=== PATIENT | male | born 1945 | race Caucasian/White ===

== ENCOUNTER 2021-08-15 21:45 | Inpatient (IN) ==
[2021-08-15] MEDS ORDERED: SODIUM CHLORIDE 0.9% 500 ML IV STA (21:55)
[2021-08-15 22:07] LABS: Basophils # (auto) 0.09 K/uL (0-0.2); Basophils % (auto) 0.8 %; Eosinophils # (auto) 0.53 K/uL (0-0.5); Eosinophils % (auto) 4.8 %; Hematocrit (blood only) 43.2 % (42-52); Hemoglobin 14.9 g/dL (14.0-18.0); Immature Granulocytes # (auto) 0.04 K/uL (0.00-0.02); Immature Granulocytes % (auto) 0.4 %; Lymphocytes # (auto) 4.49 K/uL (1.2-3.4); Lymphocytes % (auto) 40.4 %; Mean Corpuscular Hemoglobin 34.1 pg (25-34); Mean Corpuscular Hgb Conc 34.5 g/dL (32-36); Mean Corpuscular Volume 98.9 fL (80-100); Mean Platelet Volume 9.8 fL (7.4-10.4); Monocytes # (auto) 1.49 K/uL (0.11-0.59); Monocytes % (auto) 13.4 %; Neutrophils # (auto) 4.47 K/uL (1.4-6.5); Neutrophils % (auto) 40.2 %; Platelet Count 339 K/uL (130-400); RDW Coefficient of Variation 13.8 % (11.5-14.5); RDW Standard Deviation 49.8 fL (36.4-46.3); Red Blood Count 4.37 M/uL (4.7-6.1); White Blood Count 11.11 K/uL (4.8-10.8)
[2021-08-15 22:20] LABS: Partial Thromboplastin Time 25.8 Seconds (21.0-31.0); Prothrombin Time 10.5 Seconds (9.0-12.0)
[2021-08-15 22:23] LABS: Alanine Aminotransferase 25 (12-78); Albumin Level 3.3 gm/dl (3.4-5.0); Aspartate Aminotransferase 19 U/L (15-37); BUN Creatinine Ratio 18.5 (10-20); Blood Urea Nitrogen 17 mg/dl (7-18); Calcium 8.2 mg/dl (8.5-10.1); Carbon Dioxide 23 mmol/L (21-32); Chloride 107 mmol/L (98-107); Creatinine Clr Calc Pharmacy 75.3 ml/min; Est GFR (African American) 92.7 ml/min; Glucose 104 mg/dl (70-99); Lipase 196 U/L (73-393); Potassium 3.9 mmol/L (3.5-5.1); Sodium 138 mmol/L (136-145)
--- NOTE | 2021-08-15 22:25 | Emergency Department Note ---
History of Present Illness General Chief complaint: Arrhythmia/Palpitations Stated complaint: Cardiac Assessment AMS Time Seen by Provider: 08/15/21 21:55 Source: patient and EMS Mode of arrival: EMS Limitations: no limitations History of Present Illness This patient is brought in by EMS after he had episode of dizziness. They called me as they were worried about heart block. On the monitor it looks to be a second, likely third-degree heart block from what they sent me although a rhythm strip was not there. He has had normal blood pressure on route. His speech was a little labored but not slurred. He did drink 1 beer tonight. He denies chest pain or shortness of breath apparently he was dizzy earlier but feels pretty good now. No abdominal pain no focal numbness or weakness no headache neck pain or stiffness. He denies any history of cardiac disease or renal disease. Family arrived and told me that they drove from [place] and were in the hotel room and the patient started feeling like his ears were ringing and then he felt dizzy like the room was spinning. They felt his speech was off as well. The patient feels much better now and has no dizziness or ear ringing but his speech still seems labored to them. He has had no trauma. He had a recent work-up with an MRI within the last 6 months or so for memory issues for dementia. He did have a stroke work-up done several years ago and his that it was unremarkable he apparently had a TIA. Home Medications Medication Instructions Recorded Confirmed Type acetaminophen 650 mg 650 mg PO Q12H 08/15/21 08/15/21 History tablet,extended release losartan 100 mg tablet 100 mg PO DAILY 08/15/21 08/15/21 History omeprazole 20 mg capsule,delayed 20 mg PO DAILY 08/15/21 08/15/21 History release omeprazole 20 mg capsule,delayed 20 mg PO QPM PRN 08/15/21 08/15/21 History release Allergies Allergy/AdvReac Type Severity Reaction Status Date / Time No Known Allergies Allergy Unverified 08/15/21 22:10 Past Med/Surg History Social History Smoking Status: Former smoker Preferred Language: [place] Feels Safe at Home: Yes Immunizations: Past medical historymild dementia, hypertension. No history of diabetes, cardiac disease. No blood thinners. No aortic pathology Social [place]ives in [place] with his family he did drink 2 beers this evening Review of Systems A total of 10 systems reviewed and were otherwise negative Physical Exam Vital Signs Vital Signs - 24 hr 08/15/21 21:57 08/15/21 22:08 08/15/21 22:15 Temperature 36.8 C Temperature Source Oral Pulse Rate 48 L 41 L 47 L Pulse Rate [Apical] Pulse Rhythm Irregular Pulse Rhythm [Apical] Pulse Strength Normal Pulse Strength [Apical] Respiratory Rate 18 16 17 Respiratory Effort / Characteristics Non-Labored Spontaneous Respiratory Depth Normal Respiratory Pattern Regular Blood Pressure 133/98 128/74 143/88 H Blood Pressure [Right Arm] Blood Pressure Mean 109 92 106 Blood Pressure Mean [Right Arm] Blood Pressure Position Lying Blood Pressure Position [Right Arm] Pulse Oximetry 96 95 95 Oxygen Delivery Method Room Air Sepsis Recent Fever Within 48 Hours No Sepsis New/Unexplained Change in Mental Status No Sepsis Action Taken by Nursing No Action Required 08/15/21 22:31 08/15/21 22:38 08/15/21 23:13 Temperature Temperature Source Pulse Rate 50 L 38 L Pulse Rate [Apical] 55 L Pulse Rhythm Pulse Rhythm [Apical] Regular Pulse Strength Pulse Strength [Apical] Normal Respiratory Rate 17 15 16 Respiratory Effort / Characteristics Non-Labored Spontaneous Respiratory Depth Normal Respiratory Pattern Regular Blood Pressure 141/105 H 152/97 H Blood Pressure [Right Arm] 157/88 H Blood Pressure Mean 117 115 Blood Pressure Mean [Right Arm] 111 Blood Pressure Position Blood Pressure Position [Right Arm] Semi-fowlers Pulse Oximetry 94 95 95 Oxygen Delivery Method Room Air Sepsis Recent Fever Within 48 Hours Sepsis New/Unexplained Change in Mental Status Sepsis Action Taken by Nursing General: Well developed well nourished older male who appears in no acute distress, breathing comfortably on room air. Normal speech which is slightly thick but he answers questions appropriately and names objects appropriately HEENT: Normal cephalic atraumatic. Pupils are equal round and reactive to light. No nystagmus extraocular movements are intact. Oropharynx is pink with moist mucous membranes. No swelling of the mouth lips or tongue. Neck: Supple with a midline trachea. No meningeal signs or stiffness, no JVD or bruits. No Stridor. Chest: Clear to auscultation bilaterally. No wheezes or rhonchi. No increased work of breathing. Heart: Regular rate and rhythm without murmurs or gallops. Abdomen: Soft nontender, nondistended without rebound guarding or rigidity. Extremities: No cyanosis clubbing or edema. No calf tenderness or assymetry Spine/Back. Non tender to palpation. No CVA tenderness Skin: Good turgor without rashes. Neurologic exam: Cranial nerves two through 12 are intact. Motor and sensation are intact and symmetrical throughout. No tremor. Finger-nose intact. Course Administered Medications Discontinued Medications Aspirin (Aspirin 81 Mg Chew) 324 mg PO NOW STA Stop: 08/16/21 00:01 Last Admin: 08/16/21 00:20 Dose: 324 mg Documented by: [id number] Sodium Chloride (Nss) 500 mls @ 999 mls/hr IV .Q31M STA Stop: 08/15/21 22:25 Last Infusion: 08/15/21 22:40 Dose: 0 mls/hr Documented by: [id number] Admin: 08/15/21 22:12 Dose: 999 mls/hr Documented by: [id number] Ioversol (Optiray 320 125ml) 120 ml IV ONCE ONE Stop: 08/15/21 22:54 Last Admin: 08/15/21 23:01 Dose: 120 ml Documented by: [id number] Critical Care Time Critical Care Time: Yes Total Critical Care Time: 90 Due to the patient's cardiac arrhythmia, potential neurologic symptoms, need for frequent reassessment, consultation/discussion with neurology, internal medicine, cardiology, family members extensive work-up and frequent reevaluation, I have personally spent greater than 90 minutes of critical care time in the direct management of this patient. This includes bedside care, interpretation of diagnostic studies, and testing, discussion with consultants, patient, and family members, and other required patient management activities. This 90 minutes is in excess of all separately billable procedures. Medical Decision Making Differential Diagnosis Heart block, arrhythmia, acute coronary syndrome, electrolyte or metabolic abnormality, Lyme disease, stroke, intracranial process, vascular pathology, dissection Medical Records Attestation: I reviewed the patient's medical records. Home Medications Current Medication List: was personally reviewed by me Laboratory Data Attestation: I reviewed the patient's lab results. Result diagrams: 08/15/21 21:58 08/15/21 21:58 Lab Results 01/01/22 01/01/22 01/01/22 Range/Units 21:58 21:58 21:58 WBC 11.11 H (4.8-10.8) K/uL RBC 4.37 L (4.7-6.1) M/uL Hgb 14.9 (14.0-18.0) g/dL Hct 43.2 (42-52) % MCV 98.9 (80-100) fL MCH 34.1 H (25-34) pg MCHC 34.5 (32-36) g/dL RDW Std Deviation 49.8 H (36.4-46.3) fL RDW Coeff of Alec 13.8 (11.5-14.5) % Plt Count 339 (130-400) K/uL MPV 9.8 (7.4-10.4) fL Immature Gran % (Auto) 0.4 % Neut % (Auto) 40.2 % Lymph % (Auto) 40.4 % [place] % (Auto) 13.4 % Eos % (Auto) 4.8 % Baso % (Auto) 0.8 % Neut # (Auto) 4.47 (1.4-6.5) K/uL Lymph # (Auto) 4.49 H (1.2-3.4) K/uL [place] # (Auto) 1.49 H (0.11-0.59) K/uL Eos # (Auto) 0.53 H (0-0.5) K/uL Baso # (Auto) 0.09 (0-0.2) K/uL Immature Gran # (Auto) 0.04 H (0.00-0.02) K/uL PT 10.5 (9.0-12.0) Seconds INR 1.0 (0.9-1.1) APTT 25.8 (21.0-31.0) Seconds PTT Ratio 1.0 Sodium 138 (136-145) mmol/L Potassium 3.9 (3.5-5.1) mmol/L Chloride 107 (98-107) mmol/L Carbon Dioxide 23 (21-32) mmol/L Anion Gap 7.0 (3-11) BUN 17 (7-18) mg/dl Creatinine 0.93 (0.6-1.4) mg/dl Est Cr Clr Drug Dosing 75.3 ml/min Est GFR ( Amer) 92.7 ml/min Est GFR (Non-Af Amer) 80.0 ml/min BUN/Creatinine Ratio 18.5 (10-20) Glucose 104 H (70-99) mg/dl Calcium 8.2 L (8.5-10.1) mg/dl Magnesium 2.1 (1.8-2.4) mg/dl Total Bilirubin 0.3 (0.2-1) mg/dl AST 19 (15-37) U/L ALT 25 (12-78) Alkaline Phosphatase 67 (45-117) U/L Troponin I < 0.015 (0-0.045) ng/ml NT-Pro-B Natriuret Pep 124 (0-900) pg/ml Total Protein 6.7 (6.4-8.2) gm/dl Albumin 3.3 L (3.4-5.0) gm/dl Globulin 3.4 (2.5-4.0) gm/dl Albumin/Globulin Ratio 1.0 (0.9-2) Lipase 196 (73-393) U/L TSH 1.610 (0.300-4.500) uIu/ml Ethyl Alcohol mg/dL (0-3) mg/dl Lyme Disease IgG Ab (Negative) Lyme Disease IgM Ab (Negative) SARS-CoV-2, RNA, NAAT (NEGATIVE) 08/15/21 08/15/21 08/15/21 Range/Units 21:58 22:15 22:34 WBC (4.8-10.8) K/uL RBC (4.7-6.1) M/uL Hgb (14.0-18.0) g/dL Hct (42-52) % MCV (80-100) fL MCH (25-34) pg MCHC (32-36) g/dL RDW Std Deviation (36.4-46.3) fL RDW Coeff of Alec (11.5-14.5) % Plt Count (130-400) K/uL MPV (7.4-10.4) fL Immature Gran % (Auto) % Neut % (Auto) % Lymph % (Auto) % [place] % (Auto) % Eos % (Auto) % Baso % (Auto) % Neut # (Auto) (1.4-6.5) K/uL Lymph # (Auto) (1.2-3.4) K/uL [place] # (Auto) (0.11-0.59) K/uL Eos # (Auto) (0-0.5) K/uL Baso # (Auto) (0-0.2) K/uL Immature Gran # (Auto) (0.00-0.02) K/uL PT (9.0-12.0) Seconds INR (0.9-1.1) APTT (21.0-31.0) Seconds PTT Ratio Sodium (136-145) mmol/L Potassium (3.5-5.1) mmol/L Chloride (98-107) mmol/L Carbon Dioxide (21-32) mmol/L Anion Gap (3-11) BUN (7-18) mg/dl Creatinine (0.6-1.4) mg/dl Est Cr Clr Drug Dosing ml/min Est GFR ( Amer) ml/min Est GFR (Non-Af Amer) ml/min BUN/Creatinine Ratio (10-20) Glucose (70-99) mg/dl Calcium (8.5-10.1) mg/dl Magnesium (1.8-2.4) mg/dl Total Bilirubin (0.2-1) mg/dl AST (15-37) U/L ALT (12-78) Alkaline Phosphatase (45-117) U/L Troponin I (0-0.045) ng/ml NT-Pro-B Natriuret Pep (0-900) pg/ml Total Protein (6.4-8.2) gm/dl Albumin (3.4-5.0) gm/dl Globulin (2.5-4.0) gm/dl Albumin/Globulin Ratio (0.9-2) Lipase (73-393) U/L TSH (0.300-4.500) uIu/ml Ethyl Alcohol mg/dL 5.7 H (0-3) mg/dl Lyme Disease IgG Ab Negative (Negative) Lyme Disease IgM Ab Negative (Negative) SARS-CoV-2, RNA, NAAT NEGATIVE (NEGATIVE) Imaging Data Attestation: I personally reviewed and interpreted this imaging study as follows: My Impression: Chest x-rayno acute infiltrate, failure, pneumothorax. CAT scan of the headno hemorrhage or mass-effect seen Radiologist's Impression: Chest X-Ray 08/15/21 21:55 XR chest 1V portable HISTORY: 75 years-old Male Chest Pain acute atypical chest pain with dizziness COMPARISON: None TECHNIQUE: Portable AP view of the chest FINDINGS: The cardiac silhouette is upper limits of normal in size. No pneumothorax, large pleural effusion or overt pulmonary edema. Minimal bibasilar densities suggest atelectasis. Degenerative changes of the shoulders and spine. IMPRESSION: No acute process. ACT 112: Negative or not required by law. The above report was generated using voice recognition software. It may contain grammatical, syntax or spelling errors. Electronically signed by: Iván Tapia M.D. 08/15/2021 10:[address] 08/15/21 22:03 CT head/brain wo con CLINICAL HISTORY: 75 years-old Male with dizziness. Acute dizziness TECHNIQUE: Multiple axial CT images of the head were obtained without contrast. A dose lowering technique was utilized adhering to the principles of ALARA. COMPARISON: None FINDINGS: Age-related involutional changes. White matter hypodensities suggestive of chronic microvascular ischemic disease. Cerebral vascular calcifications. No acute intracranial hemorrhage, midline shift, intracranial mass, hydrocephalus, territorial ischemia or abnormal extra-axial collection. The calvarium is intact. Mastoid air cells are clear. Mild to moderate mucosal thickening of the paranasal sinuses, most pronounced within the ethmoid air cells. Unremarkable soft tissues. Prior bilateral lens repair. IMPRESSION: No acute intracranial abnormality. ACT 112: Negative or not required by law. The above report was generated using voice recognition software. It may contain grammatical, syntax or spelling errors. Electronically signed by: Iván Tapia M.D. 08/15/2021 11:09 PM Head CTA 08/15/21 22:03 CT angio head w con, CT angio neck with con CLINICAL HISTORY: 75 years-old Male with dizziness. Acute dizziness with strokelike symptoms COMPARISON STUDY: CTA chest and PET/CT studies of same day TECHNIQUE: Following the IV administration of 120 cc of Optiray, CT angiogram of the head and neck was performed from the aortic arch to the skull apex. Images are reviewed in the axial, sagittal, and coronal planes. 3-D MIPS images are created and assessed. IV contrast was administered without complication. All measurements were obtained according to NASCET criteria. A dose lowering t echnique was utilized adhering to the principles of ALARA. FINDINGS: Three-vessel morphology of the thoracic aortic arch. Patency of the innominate and imaged subclavian arteries. The common and internal carotid arteries are patent. There is mild atherosclerotic plaque of the right. Left carotid bulbs. The middle and anterior cerebral arteries appear to be patent. There is mild multifocal luminal narrowing of the vertebral artery secondary to spondylitic spurring and facet arthrosis of the cervical spine which measures up to 50% bilaterally. There is smooth moderate luminal narrowing of the distal V4 segment right vertebral artery. There is approximately 30% stenosis of the distal basilar artery and proximal P1 segment of the right posterior cerebral artery as seen on images 125-131 of series 8. There is a questioned eccentric small thrombus within this distribution. origin of the left posterior cerebral artery. The cerebral venous sinuses are patent. No abnormal intracranial enhancement. Mild to moderate mucosal thickening of the paranasal sinuses. No pneumothorax. Unremarkable soft tissues. Degenerative changes of the cervical spine. IMPRESSION: 1. 30% luminal narrowing of the distal basilar artery and proximal P1 segment of the right posterior cerebral artery secondary to a questioned eccentric thrombus. No high-grade stenosis or arterial occlusion. 2. Otherwise unremarkable CTA of the head and neck. ACT 112: Negative or not required by law. The above report was generated using voice recognition software. It may contain grammatical, syntax or spelling errors. Electronically signed by: Iván Tapia M.D. 08/15/2021 11:38 PM Neck CTA 08/15/21 22:03 CT angio head w con, CT angio neck with con CLINICAL HISTORY: 75 years-old Male with dizziness. Acute dizziness with strokelike symptoms COMPARISON STUDY: CTA chest and PET/CT studies of same day TECHNIQUE: Following the IV administration of 120 cc of Optiray, CT angiogram of the head and neck was performed from the aortic arch to the skull apex. Images are reviewed in the axial, sagittal, and coronal planes. 3-D MIPS images are created and assessed. IV contrast was administered without complication. All measurements were obtained according to NASCET criteria. A dose lowering technique was utilized adhering to the principles of ALARA. FINDINGS: Three-vessel morphology of the thoracic aortic arch. Patency of the innominate and imaged subclavian arteries. The common and internal carotid arteries are patent. There is mild atherosclerotic plaque of the right. Left carotid bulbs. The middle and anterior cerebral arteries appear to be patent. There is mild multifocal luminal narrowing of the vertebral artery secondary to spondylitic spurring and facet arthrosis of the cervical spine which measures up to 50% bilaterally. There is smooth moderate luminal narrowing of the distal V4 segment right vertebral artery. There is approximately 30% stenosis of the distal basilar artery and proximal P1 segment of the right posterior cerebral artery as seen on images 125-131 of series 8. There is a questioned eccentric small thrombus within this distribution. origin of the left posterior cer ebral artery. The cerebral venous sinuses are patent. No abnormal intracranial enhancement. Mild to moderate mucosal thickening of the paranasal sinuses. No pneumothorax. Unremarkable soft tissues. Degenerative changes of the cervical spine. IMPRESSION: 1. 30% luminal narrowing of the distal basilar artery and proximal P1 segment of the right posterior cerebral artery secondary to a questioned eccentric thrombus. No high-grade stenosis or arterial occlusion. 2. Otherwise unremarkable CTA of the head and neck. ACT 112: Negative or not required by law. The above report was generated using voice recognition software. It may contain grammatical, syntax or spelling errors. Electronically signed by: Iván Tapia M.D. 08/15/2021 11:38 PM Chest CTA 08/15/21 22:37 CT angio chest dissec wo/w con HISTORY: 75 years-old Male eval for dissect acute chest pain with cardiac arrhythmia COMPARISON: Chest radiograph of same day TECHNIQUE: CTA of the chest was obtained both with and without the use of 120 mL Optiray 320. 3-D coronal and sagittal MIPS were obtained from the axial data set and were submitted for review. All measurements were obtained according to NASCET criteria. A dose lowering technique was used consistent with the principa ls of FORTUNATO. FINDINGS: CTA: There is mild to moderate cardiomegaly with moderate coronary artery calcifications. There is mild atherosclerotic plaque of the thoracic aorta. No intracranial hematoma, dissection or aneurysm. The imaged great vessels appear patent. The imaged pulmonary artery is unremarkable. No evidence of pulmonary emboli. No mediastinal hematoma. CT CHEST: Unremarkable thyroid. There are a few prominent and slightly enlarged mediastinal and hilar lymph nodes measuring up to 10 mm which are likely reactive. Mild dependent subsegmental bibasilar atelectasis. Mild intralobular septal thickening. No pneumothorax, pleural effusion or airspace consolidation typical for pneumonia. There are no suspicious pulmonary nodules or masses identified. The central airways appear patent. Mild nonspecific distal esophageal wall thickening. Mild atrophic pancreas. 1.4 cm cystic structure of the pancreatic head, possibly sidebranch IPMN. Moderately distended stomach is suggestive of recent meal. 2.1 cm right hepatic lobe cyst. No acute fracture identified. Degenerative changes of the spine and shoulders. IMPRESSION: 1. Cardiomegaly with unremarkable appearance of the thoracic aorta. No aneurysm or dissection. 2. Mild intralobular septal thickening may represent mild pulmonary edema. 3. No pleural effusion or airspace consolidation typical for pneumonia. 4. Mild mediastinal and hilar adenopathy, likely reactive. ACT 112: Negative or not required by law. The above report was generated using voice recognition software. It may contain grammatical, syntax or spelling errors. Electronically signed by: Iván Tapia M.D. 08/15/2021 11:38 PM ECG Data Attestation: I personally reviewed and interpreted this ECG as follows: Indication: + other (Dizziness) Rate (beats per minute): 45 Rhythm: + sinus rhythm ECG Intervals/blocks: + Complete heart block ECG [place]: + Normal ECG Findings: no PACs or no PVCs Comparison ECG Date: no prior available Additional Comments: EKG #2third-degree heart block with a ventricular rate of 72. No ischemic changes. MDM Narrative This patient comes in as described above. I did talk to the mass communications instructor prior to arrival give medical command the patient has remained hemodynamically stable we did place the patient in room A1 I saw the patient immediately upon arrival. Blood sugar was within normal limits. The patient was mentating normally and has a blood pressure in the 140s despite having heart rate in the 40s that goes up to 60s. When I run the rhythm strip it does look like it is a third-degree heart block although it may be a complex second-degree. He seems to be p erfusing with this he has no chest pain or shortness of breath this all started with dizziness and his speech is a little thick at present but he is answering questions appropriately he is just seems to be talking quietly at times he has no other complaints his neurologic exam is otherwise normal he has normal finger-nose and there is no tremor. I did add a Lyme titer and alcohol as well to the normal testing. Chest x-ray does not show congestive heart failure pneumonia or pneumothorax. I did discuss case with Dr. Taylor immediately after I saw him he feels that given his blood pressure being normal/elevated that we should work him up first and he does not need immediate pacemaker I agree with this. He was not found to have any electrolyte or metabolic abnormalities. He is not severely anemic. I did order a CT of the head as well as CT angio of the head, neck, and chest. He was reassessed frequently. Stroke would still be in the differential however his symptoms are getting better and he only has labored's beach at this point. It is unclear whether this is actually a stroke he also has a heart block. I talked to his family and they agree I do not think he needs thrombolytics at this point I think the risk would outweigh the benefit. His Covid test was negative. Head CT does not show any hemorrhage or mass-effect. His alcohol was not significantly elevated. CT angio of the head neck and chest were unremarkable with exception of a 30% blockage or possible thrombus that is nonocclusive on the right basilar area. I talked to the patient's son who is respiratory therapist on the phone he agrees with the care. I also did talk to Dr. Luna, who is the [place] stroke neurologist. He agrees that thrombolytics are not indicated. It is not clear whether this p atient had a stroke but certainly does have a cardiac electrical issue going on. The patient seems fine at rest and his speech is still thick but improved significantly according to family we did try to ambulate him he got dizzy again and his speech got worse but he got better when he sat down. He was given aspirin. Dr. Luna also said that if his symptoms get worse we could consider heparinizing him. He also said we could put him on a statin as well and I relayed these recommendations to Dr. Quinn who was also at the bedside and will be admitting the patient from the hospital standpoint. His symptoms are positional and it may be that he is not perfusing with his heart block when he stands and it may have an underlying blockage. It is still impossible to rule out to rule out a small stroke. The patient will need an MRI, cardiac evaluation and consultation further treatment evaluation as inpatient. Dr. Quinn saw the patient will meet the patient for these measures Continuous cardiac monitoring: Orders placed in the EMR for continuous cardiac monitoring. Upon my interpretation the patient was noted to be in third-degree heart block with a rate of high 40s to low 50s primarily Impression & Plan Third degree heart block, Dizziness, Speech abnormality, Lab test negative for COVID-19 virus Discharge Plan Visit Data Chief Complaint: Arrhythmia/Palpitations Stated Complaint: Cardiac Assessment AMS ED Provider: Jovani Little Discharge Problem: Third degree heart block, Dizziness, Speech abnormality, Lab test negative for COVID-19 virus Forms Stand Alone Forms: My [facility] Prescriptions Prescriptions: No Action omeprazole 20 mg capsule,delayed release(DR/EC) 20 mg PO QPM PRN (Reason: Acid Reflux) RF: 0 omeprazole 20 mg capsule,delayed release(DR/EC) 20 mg PO DAILY RF: 0 losartan 100 mg tablet 100 mg PO DAILY RF: 0 acetaminophen [Tylenol Arthritis] 650 mg Tablet Extended Release 650 mg PO Q12H RF: 0 Referrals Referrals: PCP,NO [Primary Care Provider] - Discharge Problem: Speech abnormality Qualifiers: Speech disturbance type: unspecified speech disturbance Qualified Code(s): R47.9 - Unspecified speech disturbances
[2021-08-15 22:28] LABS: Alkaline Phosphatase 67 U/L (45-117); Globulin 3.4 gm/dl (2.5-4.0); Total Protein 6.7 gm/dl (6.4-8.2); Troponin I < 0.015 ng/ml (0-0.045)
--- NOTE | 2021-08-15 22:42 | XRay Report ---
XR chest 1V portable HISTORY: 75 years-old Male Chest Pain acute atypical chest pain with dizziness COMPARISON: None TECHNIQUE: Portable AP view of the chest FINDINGS: The cardiac silhouette is upper limits of normal in size. No pneumothorax, large pleural effusion or overt pulmonary edema. Minimal bibasilar densities suggest atelectasis. Degenerative changes of the s houlders and spine. IMPRESSION: No acute process. ACT 112: Negative or not required by law. The above report was generated using voice recognition software. It may contain grammatical, syntax o r spelling errors. Electronically signed by: Iván Tapia M.D. 08/15/2021 10:41 PM
[2021-08-15 22:45] LABS: Bilirubin,Total 0.3 mg/dl (0.2-1)
[2021-08-15] MEDS ORDERED: OPTIRAY 320 125ml IV ONE (22:53)
--- NOTE | 2021-08-15 23:11 | CT Scan Report ---
CT head/brain wo con CLINICAL HISTORY: 75 years-old Male with dizziness. Acute dizziness TECHNIQUE: Multiple axial CT images of the head were obtained without contrast. A dose lowering tech nique was utilized adhering to the principles of ALARA. COMPARISON: None FINDINGS: Age-related involutional changes. White matter hypodensities suggestive of chronic microvascular isch emic disease. Cerebral vascular calcifications. No acute intracranial hemorrhage, midline shift, intr acranial mass, hydrocephalus, territorial ischemia or abnormal extra-axial collection. The calvarium is intact. Mastoid air cells are clear. Mild to moderate mucosal thickening of the par anasal sinuses, most pronounced within the ethmoid air cells. Unremarkable soft tissues. Prior bilate ral lens repair. IMPRESSION: No acute intracranial abnormality. ACT 112: Negative or not required by law. The above report was generated using voice recognition software. It may contain grammatical, syntax o r spelling errors. Electronically signed by: Iván Tapia M.D. 08/15/2021 11:09 PM
[2021-08-15 23:31] LABS: Lyme Ab IgG w/WB Rflx Negative (Negative); Lyme Ab IgM w/WB Rflx Negative (Negative)
--- NOTE | 2021-08-15 23:40 | CT Scan Report ---
CT angio head w con, CT angio neck with con CLINICAL HISTORY: 75 years-old Male with dizziness. Acute dizziness with strokelike symptoms COMPARISON STUDY: CTA chest and PET/CT studies of same day TECHNIQUE: Following the IV administration of 120 cc of Optiray, CT angiogram of the head and neck wa s performed from the aortic arch to the skull apex. Images are reviewed in the axial, sagittal, and c oronal planes. 3-D MIPS images are created and assessed. IV contrast was administered without complic ation. All measurements were obtained according to NASCET criteria. A dose lowering technique was uti lized adhering to the principles of ALARA. FINDINGS: Three-vessel morphology of the thoracic aortic arch. Patency of the innominate and imaged s ubclavian arteries. The common and internal carotid arteries are patent. There is mild atheroscleroti c plaque of the right. Left carotid bulbs. The middle and anterior cerebral arteries appear to be pat ent. There is mild multifocal luminal narrowing of the vertebral artery secondary to spondylitic spur ring and facet arthrosis of the cervical spine which measures up to 50% bilaterally. There is smooth moderate luminal narrowing of the distal V4 segment right vertebral artery. There is approximately 30 % stenosis of the distal basilar artery and proximal P1 segment of the right posterior cerebral arter y as seen on images 125-131 of series 8. There is a questioned eccentric small thrombus within this d istribution. origin of the left posterior cerebral artery. The cerebral venous sinuses are hedrick nt. No abnormal intracranial enhancement. Mild to moderate mucosal thickening of the paranasal sinuses. No pneumothorax. Unremarkable soft tiss ues. Degenerative changes of the cervical spine. IMPRESSION: 1. 30% luminal narrowing of the distal basilar artery and proximal P1 segment of the right posterior cerebral artery secondary to a questioned eccentric thrombus. No high-grade stenosis or arterial occl usion. 2. Otherwise unremarkable CTA of the head and neck. ACT 112: Negative or not required by law. The above report was generated using voice recognition software. It may contain grammatical, syntax o r spelling errors. Electronically signed by: Iván Tapia M.D. 08/15/2021 11:38 PM
--- NOTE | 2021-08-15 23:40 | CT Scan Report ---
CT angio chest dissec wo/w con HISTORY: 75 years-old Male eval for dissect acute chest pain with cardiac arrhythmia COMPARISON: Chest radiograph of same day TECHNIQUE: CTA of the chest was obtained both with and without the use of 120 mL Optiray 320. 3-D cor onal and sagittal MIPS were obtained from the axial data set and were submitted for review. All measu rements were obtained according to NASCET criteria. A dose lowering technique was used consistent wit h the principals sacha BUCIO. FINDINGS: CTA: There is mild to moderate cardiomegaly with moderate coronary artery calcifications. There is mild at herosclerotic plaque of the thoracic aorta. No intracranial hematoma, dissection or aneurysm. The ibis ged great vessels appear patent. The imaged pulmonary artery is unremarkable. No evidence of pulmonar y emboli. No mediastinal hematoma. CT CHEST: Unremarkable thyroid. There are a few prominent and slightly enlarged mediastinal and hilar lymph nod es measuring up to 10 mm which are likely reactive. Mild dependent subsegmental bibasilar atelectasis . Mild intralobular septal thickening. No pneumothorax, pleural effusion or airspace consolidation ty pical for pneumonia. There are no suspicious pulmonary nodules or masses identified. The central airw ays appear patent. Mild nonspecific distal esophageal wall thickening. Mild atrophic pancreas. 1.4 cm cystic structure o f the pancreatic head, possibly sidebranch IPMN. Moderately distended stomach is suggestive of recent meal. 2.1 cm right hepatic lobe cyst. No acute fracture identified. Degenerative changes of the spin e and shoulders. IMPRESSION: 1. Cardiomegaly with unremarkable appearance of the thoracic aorta. No aneurysm or dissection. 2. Mild intralobular septal thickening may represent mild pulmonary edema. 3. No pleural effusion or airspace consolidation typical for pneumonia. 4. Mild mediastinal and hilar adenopathy, likely reactive. ACT 112: Negative or not required by law. The above report was generated using voice recognition software. It may contain grammatical, syntax o r spelling errors. Electronically signed by: Iván Tapia M.D. 08/15/2021 11:38 PM
[2021-08-15 23:43] LABS: Magnesium 2.1 mg/dl (1.8-2.4)
[2021-08-16] MEDS ORDERED: ASPIRIN 81 MG CHEW PO STA
--- NOTE | 2021-08-16 00:39 | History & Physical Report ---
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 Taylor.) N.p.o. for now in anticipation of procedural intervention in a.m. DVT prophylaxis. Lovenox subcu Full code Patient requesting updates from providers. Nitesh Katlyn Bauer, contact #[phone]. Text document was generated using [employer] voice recognition software. It may contain grammatical or spelling errors. Kindly contact undersigned for clarification of any documentation item in question. History of Present Illness Chief Complaint: Dizziness, tinnitus, dysarthria Primary Care Provider: Dr. Chinmay Quigley from [place], [place] History obtained from patient, family, and records. Medical history significant for hypertension, pancreatic neuroendocrine tumor status post surgery, GERD, past tobacco abuse. Patient is a resident of [place], [place] who (along with his and grandson) left his home yesterday by car to travel to [place] where patient and his maintain a second residence. Patient and were going to accompany/drop off grandson at a [employer] school in [place] before driving to their final destination in [place]. Last night after dinner, patient was with his family at a local hotel room in [place], [place] when he experienced sudden onset bilateral tinnitus without hearing loss or headache later followed by dizziness described as spinning somewhat worse with motion. Patient later noted to be dysarthric by family. No visual problems/facial/arm or leg weakness. No prior episodes. Patient denies chest pain, S OB. Patient found to have complete heart block on EKG done by EMS. Patient brought to the ER for evaluation. Dysarthria symptoms coming and going as per ER provider. TPA not recommended by [facility] stroke specialist supervisor fabrication and assembly. Aspirin and statin administered at the ER as per specialist recommendations. Medical History as above Surgical History : Pancreatic tail tumor removal, splenectomy Family History : No heart disease, no DM, no stroke as per patient Personal/Social history : Past tobacco abuse, occasional EtOH intake, retired rider ticket worker Allergies Allergy/AdvReac Type Severity Reaction Status Date / Time No Known Allergies Allergy Unverified 08/15/21 22:10 Home Medications Medication Instructions Recorded Confirmed Type acetaminophen 650 mg 650 mg PO Q12H 08/15/21 08/15/21 History tablet,extended release losartan 100 mg tablet 100 mg PO DAILY 08/15/21 08/15/21 History omeprazole 20 mg capsule,delayed 20 mg PO DAILY 08/15/21 08/15/21 History release omeprazole 20 mg capsule,delayed 20 mg PO QPM PRN 08/15/21 08/15/21 History release Past Med/Surg History Social History Smoking Status: Former smoker Hx Alcohol Use: Yes Alcohol type: beer Hx Substance Use: No Preferred Language: Welsh Beliefs That Will Affect Care: None Current Living Situation: Family Other Information That Helps Us Care for You: No Feels Safe at Home: Yes Safety Concerns: Feels Safe At This Time Assistive Devices: Glasses and Hearing Aid - Bilateral Review of Systems Review of Systems: As per HPI, all 10 systems reviewed, all other ROS negative Physical Exam Physical Exam: GENERAL: Comfortable, slightly anxious, dysarthric, no respiratory distress SKIN: Normal color, warm HEENT: Partial alopecia,pink palpebral conjunctivae, no ptosis, intact TM, moist buccal mucosa NECK : Supple, no tenderness CHEST : CTA, no tenderness HEART : Bradycardic, no obvious murmurs ABDOMEN: Some distention, nontender EXTREMITIES : No LE swelling/tenderness, no other conspicuous deformities noted NEUROLOGIC : Coherent, no facial asymmetry, dysarthric, no pronator drift, gait and stance not assessed Results & Data Results & Data ([facility]) Vital Signs (Past 12 Hours) Vital Signs Temp Pulse Pulse Resp BP BP Pulse Ox 08/15/21 23:13 55 L 16 157/88 H 95 08/15/21 22:38 38 L 15 152/97 H 95 08/15/21 22:31 50 L 17 141/105 H 94 08/15/21 22:15 47 L 17 143/88 H 95 08/15/21 22:08 41 L 16 128/74 95 08/15/21 21:57 36.8 C 48 L 18 133/98 96 Laboratory Results Laboratory Results WBC 11.11 K/uL (4.8-10.8) H 08/15/21 21:58 RBC 4.37 M/uL (4.7-6.1) L 08/15/21 21:58 Hgb 14.9 g/dL (14.0-18.0) 08/15/21 21:58 Hct 43.2 % (42-52) 08/15/21 21:58 MCV 98.9 fL (80-100) 08/15/21 21:58 MCH 34.1 pg (25-34) H 08/15/21 21:58 MCHC 34.5 g/dL (32-36) 08/15/21 21:58 RDW Std Deviation 49.8 fL (36.4-46.3) H 08/15/21 21:58 RDW Coeff of Alec 13.8 % (11.5-14.5) 08/15/21 21:58 Plt Count 339 K/uL (130-400) 08/15/21 21:58 MPV 9.8 fL (7.4-10.4) 08/15/21 21:58 Immature Gran % (Auto) 0.4 % 08/15/21 21:58 Neut % (Auto) 40.2 % 08/15/21 21:58 Lymph % (Auto) 40.4 % 08/15/21 21:58 [place] % (Auto) 13.4 % 08/15/21 21:58 Eos % (Auto) 4.8 % 08/15/21 21:58 Baso % (Auto) 0.8 % 08/15/21 21:58 Neut # (Auto) 4.47 K/uL (1.4-6.5) 08/15/21 21:58 Lymph # (Auto) 4.49 K/uL (1.2-3.4) H 08/15/21 21:58 [place] # (Auto) 1.49 K/uL (0.11-0.59) H 08/15/21 21:58 Eos # (Auto) 0.53 K/uL (0-0.5) H 08/15/21 21:58 Baso # (Auto) 0.09 K/uL (0-0.2) 08/15/21 21:58 Immature Gran # (Auto) 0.04 K/uL (0.00-0.02) H 08/15/21 21:58 PT 10.5 Seconds (9.0-12.0) 08/15/21 21:58 INR 1.0 (0.9-1.1) 08/15/21 21:58 APTT 25.8 Seconds (21.0-31.0) 08/15/21 21:58 PTT Ratio 1.0 08/15/21 21:58 Sodium 138 mmol/L (136-145) 08/15/21 21:58 Potassium 3.9 mmol/L (3.5-5.1) 08/15/21 21:58 Chloride 107 mmol/L (98-107) 08/15/21 21:58 Carbon Dioxide 23 mmol/L (21-32) 08/15/21 21:58 Anion Gap 7.0 (3-11) 08/15/21 21:58 BUN 17 mg/dl (7-18) 08/15/21 21:58 Creatinine 0.93 mg/dl (0.6-1.4) 08/15/21 21:58 Est Cr Clr Drug Dosing 75.3 ml/min 08/15/21 21:58 Est GFR ( Amer) 92.7 ml/min 08/15/21 21:58 Est GFR (Non-Af Amer) 80.0 ml/min 08/15/21 21:58 BUN/Creatinine Ratio 18.5 (10-20) 08/15/21 21:58 Glucose 104 mg/dl (70-99) H 08/15/21 21:58 Calcium 8.2 mg/dl (8.5-10.1) L 08/15/21 21:58 Magnesium 2.1 mg/dl (1.8-2.4) 08/15/21 21:58 Total Bilirubin 0.3 mg/dl (0.2-1) 08/15/21 21:58 AST 19 U/L (15-37) 08/15/21 21:58 ALT 25 (12-78) 08/15/21 21:58 Alkaline Phosphatase 67 U/L (45-117) 08/15/21 21:58 Troponin I < 0.015 ng/ml (0-0.045) 01/01/22 21:58 Total Protein 6.7 gm/dl (6.4-8.2) 08/15/21 21:58 Albumin 3.3 gm/dl (3.4-5.0) L 08/15/21 21:58 Globulin 3.4 gm/dl (2.5-4.0) 08/15/21 21:58 Albumin/Globulin Ratio 1.0 (0.9-2) 08/15/21 21:58 Lipase 196 U/L (73-393) 08/15/21 21:58 Ethyl Alcohol mg/dL 5.7 mg/dl (0-3) H 08/15/21 22:34 Lyme Disease IgG Ab Negative (Negative) 08/15/21 21:58 Lyme Disease IgM Ab Negative (Negative) 08/15/21 21:58 SARS-CoV-2, RNA, NAAT NEGATIVE (NEGATIVE) 08/15/21 22:15 Impressions Chest X-Ray 08/15/21 21:55 XR chest 1V portable HISTORY: 75 years-old Male Chest Pain acute atypical chest pain with dizziness COMPARISON: None TECHNIQUE: Portable AP view of the chest FINDINGS: The cardiac silhouette is upper limits of normal in size. No pneumothorax, large pleural effusion or overt pulmonary edema. Minimal bibasilar densities suggest atelectasis. Degenerative changes of the shoulders and spine. IMPRESSION: No acute process. ACT 112: Negative or not required by law. The above report was generated using voice recognition software. It may contain grammatical, syntax or spelling errors. Electronically signed by: Iván Tapia M.D. 08/15/2021 10:[address] 08/15/21 22:03 CT head/brain wo con CLINICAL HISTORY: 75 years-old Male with dizziness. Acute dizziness TECHNIQUE: Multiple axial CT images of the head were obtained without contrast. A dose lowering technique was utilized adhering to the principles of ALARA. COMPARISON: None FINDINGS: Age-related involutional changes. White matter hypodensities suggestive of chronic microvascular ischemic disease. Cerebral vascular calcifications. No acute intracranial hemorrhage, midline shift, intracranial mass, hydrocephalus, territorial ischemia or abnormal extra-axial collection. The calvarium is intact. Mastoid air cells are clear. Mild to moderate mucosal thickening of the paranasal sinuses, most pronounced within the ethmoid air cells. Unremarkable soft tissues. Prior bilateral lens repair. IMPRESSION: No acute intracranial abnormality. ACT 112: Negative or not required by law. The above report was generated using voice recognition software. It may contain grammatical, syntax or spelling errors. Electronically signed by: Iván Tapia M.D. 08/15/2021 11:09 PM Head CTA 08/15/21 22:03 CT angio head w con, CT angio neck with con CLINICAL HISTORY: 75 years-old Male with dizziness. Acute dizziness with str okelike symptoms COMPARISON STUDY: CTA chest and PET/CT studies of same day TECHNIQUE: Following the IV administration of 120 cc of Optiray, CT angiogram of the head and neck was performed from the aortic arch to the skull apex. Images are reviewed in the axial, sagittal, and coronal planes. 3-D MIPS images are created and assessed. IV contrast was administered without complication. All measurements were obtained according to NASCET criteria. A dose lowering technique was utilized adhering to the principles of ALARA. FINDINGS: Three-vessel morphology of the thoracic aortic arch. Patency of the innominate and imaged subclavian arteries. The common and internal carotid arteries are patent. There is mild atherosclerotic plaque of the right. Left carotid bulbs. The middle and anterior cerebral arteries appear to be patent. There is mild multifocal luminal narrowing of the vertebral artery secondary to spondylitic spurring and facet arthrosis of the cervical spine which measures up to 50% bilaterally. There is smooth moderate luminal narrowing of the distal V4 segment right vertebral artery. There is approximately 30% stenosis of the distal basilar artery and proximal P1 segment of the right posterior cerebral artery as seen on images 125-131 of series 8. There is a questioned eccentric small thrombus within this distribution. origin of the left posterior cerebral artery. The cerebral venous sinuses are patent. No abnormal intracranial enhancement. Mild to moderate mucosal thickening of the paranasal sinuses. No pneumothorax. Unremarkable soft tissues. Degenerative changes of the cervical spine. IMPRESSION: 1. 30% luminal narrowing of the distal basilar artery and proximal P1 segment of the right posterior cerebral artery secondary to a questioned eccentric thrombus. No high-grade stenosis or arterial occlusion. 2. Otherwise unremarkable CTA of the head and neck. ACT 112: Negative or not required by law. The above report was generated using voice recognition software. It may contain grammatical, syntax or spelling errors. Electronically signed by: Iván Tapia M.D. 08/15/2021 11:38 PM Neck CTA 08/15/21 22:03 CT angio head w con, CT angio neck with con CLINICAL HISTORY: 75 years-old Male with dizziness. Acute dizziness with strokelike symptoms COMPARISON STUDY: CTA chest and PET/CT studies of same day TECHNIQUE: Following the IV administration of 120 cc of Optiray, CT angiogram of the head and neck was performed from the aortic arch to the skull apex. Images are reviewed in the axial, sagittal, and coronal planes. 3-D MIPS images are created and assessed. IV contrast was administered without complication. All measurements were obtained according to NASCET criteria. A dose lowering technique was utilized adhering to the principles of ALARA. FINDINGS: Three-vessel morphology of the thoracic aortic arch. Patency of the innominate and imaged subclavian arteries. The common and internal carotid arteries are patent. There is mild atherosclerotic plaque of the right. Left carotid bulbs. The middle and anterior cerebral arteries appear to be patent. There is mild multifocal luminal narrowing of the vertebral artery secondary to spondylitic spurring and facet arthrosis of the cervical spine which measures up to 50% bilaterally. There is smooth moderate luminal narrowing of the distal V4 segment right vertebral artery. There is approximately 30% stenosis of the distal basilar artery and proximal P1 segment of the right posterior cerebral artery as seen on images 125-131 of series 8. There is a questioned eccentric small thrombus within this distribution. origin of the left posterior cerebral artery. The cerebral venous sinuses are patent. No abnormal intracranial enhancement. Mild to moderate mucosal thickening of the paranasal sinuses. No pneumothorax. Unremarkable soft tissues. Degenerative changes of the cervical spine. IMPRESSION: 1. 30% luminal narrowing of the distal basilar artery and proximal P1 segment of the right posterior cerebral artery secondary to a questioned eccentric thrombus. No high-grade stenosis or arterial occlusion. 2. Otherwise unremarkable CTA of the head and neck. ACT 112: Negative or not required by law. The above report was generated using voice recognition software. It may contain grammatical, syntax or spelling errors. Electronically signed by: Iván Tapia M.D. 08/15/2021 11:38 PM Chest CTA 08/15/21 22:37 CT angio chest dissec wo/w con HISTORY: 75 years-old Male eval for dissect acute chest pain with cardiac arrhythmia COMPARISON: Chest radiograph of same day TECHNIQUE: CTA of the chest was obtained both with and without the use of 120 mL Optiray 320. 3-D coronal and sagittal MIPS were obtained from the axial data set and were submitted for review. All measurements were obtained according to NASCET criteria. A dose lowering technique was used consistent with the principals of FORTUNATO. FINDINGS: CTA: There is mild to moderate cardiomegaly with moderate coronary artery calcifications. There is mild atherosclerotic plaque of the thoracic aorta. No intracranial hematoma, dissection or aneurysm. The imaged great vessels appear patent. The imaged pulmonary artery is unremarkable. No evidence of pulmonary emboli. No mediastinal hematoma. CT CHEST: Unremarkable thyroid. There are a few prominent and slightly enlarged mediastinal and hilar lymph nodes measuring up to 10 mm which are likely reactive. Mild dependent subsegmental bibasilar atelectasis. Mild intralobular septal thickening. No pneumothorax, pleural effusion or airspace consolidation typical for pneumonia. There are no suspicious pulmonary nodules or masses identified. The central airways appear patent. Mild nonspecific distal esophageal wall thickening. Mild atrophic pancreas. 1.4 cm cystic structure of the pancreatic head, possibly sidebranch IPMN. Moderately distended stomach is suggestive of recent meal. 2.1 cm right hepatic lobe cyst. No acute fracture identified. Degenerative changes of the spine and shoulders. IMPRESSION: 1. Cardiomegaly with unremarkable appearance of the thoracic aorta. No aneurysm or dissection. 2. Mild intralobular septal thickening may represent mild pulmonary edema. 3. No pleural effusion or airspace consolidation typical for pneumonia. 4. Mild mediastinal and hilar adenopathy, likely reactive. ACT 112: Negative or not required by law. The above report was generated using voice recognition software. It may contain grammatical, syntax or spelling errors. Electronically signed by: Iván Tapia M.D. 08/15/2021 11:38 PM Diagnostic Findings EKG as per my interpretation: Rate 45, second-degree AV block Mobitz type I, no ischemia
[2021-08-16] MEDS ORDERED: ATORVASTATIN 40 MG TAB PO STA (00:42)
[2021-08-16 00:59] LABS: NT Pro B Type Natriuretic Pept 124 pg/ml (0-900)
[2021-08-16] MEDS ORDERED: SODIUM CHLORIDE 0.9% 1000ML 1,000 ML IV SCH (01:30)
[2021-08-16] MEDS ORDERED: PROMETHAZINE HCL 12.5 MG in SODIUM CHLORIDE 0.9% 50 ML IV PRN (02:46)
[2021-08-16] MEDS ORDERED: ACETAMINOPHEN 325 MG TAB PO PRN (02:46)
[2021-08-16 06:57] LABS: Basophils # (auto) 0.04 K/uL (0-0.2); Basophils % (auto) 0.4 %; Eosinophils # (auto) 0.24 K/uL (0-0.5); Eosinophils % (auto) 2.3 %; Hemoglobin 15.1 g/dL (14.0-18.0); Immature Granulocytes # (auto) 0.02 K/uL (0.00-0.02); Immature Granulocytes % (auto) 0.2 %; Lymphocytes # (auto) 3.55 K/uL (1.2-3.4); Lymphocytes % (auto) 34.5 %; Mean Corpuscular Hgb Conc 34.3 g/dL (32-36); Mean Corpuscular Volume 99.1 fL (80-100); Mean Platelet Volume 10.3 fL (7.4-10.4); Monocytes # (auto) 0.91 K/uL (0.11-0.59); Monocytes % (auto) 8.8 %; Neutrophils # (auto) 5.54 K/uL (1.4-6.5); Neutrophils % (auto) 53.8 %; Platelet Count 362 K/uL (130-400); RDW Standard Deviation 50.7 fL (36.4-46.3); Red Blood Count 4.44 M/uL (4.7-6.1)
[2021-08-16 07:28] LABS: BUN Creatinine Ratio 15.9 (10-20); Calcium 8.3 mg/dl (8.5-10.1); Est GFR (African American) 98.3 ml/min; Est GFR (Non-African American) 84.8 ml/min; Potassium 3.5 mmol/L (3.5-5.1)
[2021-08-16] MEDS ORDERED: ENOXAPARIN INJ 40 MG/0.4 ML SYR SQ SCH (09:00)
--- NOTE | 2021-08-16 09:36 | Cardiology Consultation ---
Date of Consultation August 16, 2021 Assessment & Plan (1) Acute CVA (cerebrovascular accident): (2) Third degree heart block: (3) GAY (dyspnea on exertion): 1. CVA: Although I do not think we have found objective evidence of a CVA his symptoms are suspicious and although improved apparently are still present. Neurologic evaluation is pending. No obvious cardiac source, paroxysmal atrial fibrillation is of course a possibility although atrial fibrillation has not been identified here but could have converted prior to presentation. If no other obvious source of embolization is identified and this is felt to be embolic long-term monitoring would be indicated, although he will need a pacemaker which will include monitoring for atrial fibrillation. Of note although we would use an MRI compatible pacemaker guidelines suggest waiting a month or more after device implant to perform an MRI so this should be performed prior to device implantation, if indicated. 2. AV block: He has first, second and third-degree AV block on telemetry. He has a good escape rhythm therefore when he is in complete heart block his ventricular rate is above 30 bpm and he has had no pauses in excess of 3 seconds to my knowledge and no heart rates of less than 30 bpm. He is on no medications to cause this and he does not have Lyme disease. I think he should have a pacemaker, I discussed that with him including the indications, procedure, risks and alternatives and he is tentatively agreeable. I would like to wait for the neurologic evaluation but have tentatively scheduled him for a pacemaker on the morning of August 17, 2021. 3. Dyspnea exertion: He has a long history of dyspnea on exertion. His history seems a little bit vague to me in this regard and it sounds as though it has been going on for years, not just recently, and it sounds as though he has had stress tests and electrocardiograms for evaluation of this. If that is true then heart block should have been identified suggesting that this is more recent and perhaps not symptomatic. Perhaps his history is inaccurate and if his dyspnea on exertion is more recent it could be explained by heart block. I do not think I would look for ischemic heart disease as a cause given his history and his heart block. History of Present Illness Reason for Consultation: AV block Attending Physician: Brandon Ramírez MD History of Present Illness This is a 75-year-old male who lives in [place] and is traveling to [place]. He was passing through the area to take his grandson to school in [place]. He has had a lot of difficulty with dyspnea on exertion for some time, his speech is a little bit slurred and he is little hard to understand plus I do not know how clear he is on his history but it seems that this has been going on for several years, he evidently has had evaluation for it including stress test and electrocardiograms but probably nothing in a year. He tells me no one has been able to figure out what the difficulty is and he was never aware of having a slow heart rate or heart block. He has never had presyncope or syncope but has had neurologic type symptoms. His presentation was due to sudden onset of ear ringing, neck and occipital pain and some nausea. He also thought his speech was difficult. He therefore was b rought to the emergency room. In the emergency room an electrocardiogram done on August 15, 2021 at 2148 shows Mobitz 1 second-degree AV block with an overall heart rate of 45 bpm. The conducted complexes are narrow and unremarkable. He had a head CT which showed no abnormality, he also had a head and neck CTA which showed some possible atherosclerosis but no significant narrowing. He also had a chest CTA which was unremarkable. Standard blood work was also unremarkable with a negative troponin, negative BNP, a good cholesterol with a mildly elevated ethanol level but not severe. An echocardiogram done on the morning of August 16, 2021 shows normal left ventricular size and function with mild left atrial dilatation and no inter-arterial shunt and no evidence for an ASD. He does have moderate MR. Outpatient medications include losartan and no AV iris blocking medications. On monitoring in the hospital he has had occasional first-degree AV block but predominantly higher degree AV block with second-degree and third-degree heart block. Heart rates often in the 30s but not below 30. Interestingly he does not seem to have symptoms related to the heart block, his neurologic symptoms have been improving and do not seem to correlate with his rhythm. Allergies Allergy/AdvReac Type Severity Reaction Status Date / Time No Known Allergies Allergy Unverified 08/15/21 22:10 Home Medications Medication Instructions Recorded Confirmed Type acetaminophen 650 mg 650 mg PO Q12H 08/15/21 08/15/21 History tablet,extended release losartan 100 mg tablet 100 mg PO DAILY 08/15/21 08/15/21 History omeprazole 20 mg capsule,delayed 20 mg PO DAILY 08/15/21 08/15/21 History release omeprazole 20 mg capsule,delayed 20 mg PO QPM PRN 08/15/21 08/15/21 History release Patient History Social History Smoking Status: Former smoker Hx Alcohol Use: Yes Alcohol type: beer Hx Substance Use: No Preferred Language: Italian Beliefs That Will Affect Care: None Current Living Situation: Family Other Information That Helps Us Care for You: No Feels Safe at Home: Yes Safety Concerns: Feels Safe At This Time Assistive Devices: Glasses and Hearing Aid - Bilateral Review of Systems Review of Systems: All systems reviewed & are unremarkable except as noted in HPI & below Physical Exam Physical Exam: Constitutional: Alert, cooperative and in no distress. HEENT: Unremarkable Neck: No jugular venous distention, carotid pulses are irregular but otherwise normal and equal bilaterally without bruits. Pulmonary: Clear to auscultation bilaterally. Cardiac: Irregular slow rhythm with a grade 2/6 holosystolic murmur at the apex, no gallop or rub. Abdomen: Soft, nontender with normal bowel sounds. Extremities: No edema. Distal pulses intact. Neurologic: No focal findings. Gait is steady. Skin: No rash, ecchymoses or petechiae. Results & Data ([facility]) Vital Signs (Past 12 Hours) Vital Signs Temp Pulse Pulse Resp BP BP BP 08/16/21 07:00 36.6 C 63 19 158/88 H 08/16/21 03:09 36 L 08/16/21 02:32 36.6 C 70 18 160/89 H 08/16/21 01:59 44 L 18 162/89 H 08/16/21 01:00 47 L 16 143/89 H 08/15/21 23:13 55 L 16 157/88 H 08/15/21 22:38 38 L 15 152/97 H 08/15/21 22:31 50 L 17 141/105 H 08/15/21 22:15 47 L 17 143/88 H 08/15/21 22:08 41 L 16 128/74 08/15/21 21:57 36.8 C 48 L 18 133/98 Pulse Ox 08/16/21 07:00 97 08/16/21 03:09 08/16/21 02:32 95 08/16/21 01:59 96 08/16/21 01:00 96 08/15/21 23:13 95 08/15/21 22:38 95 08/15/21 22:31 94 08/15/21 22:15 95 08/15/21 22:08 95 08/15/21 21:57 96 Laboratory Results Cardiac Enzymes 08/15/21 Range/Units 21:58 AST 19 (15-37) U/L Troponin I < 0.015 (0-0.045) ng/ml Coagulation 08/15/21 Range/Units 21:58 PT 10.5 (9.0-12.0) Seconds APTT 25.8 (21.0-31.0) Seconds Lipids 08/16/21 Range/Units 06:09 Triglycerides 115 (0-150) mg/dl Cholesterol 174 (0-200) mg/dl HDL Cholesterol 66 mg/dl Cholesterol/HDL Ratio 3 CBC 08/15/21 08/16/21 Range/Units 21:58 06:09 WBC 11.11 H 10.30 (4.8-10.8) K/uL RBC 4.37 L 4.44 L (4.7-6.1) M/uL Hgb 14.9 15.1 (14.0-18.0) g/dL Hct 43.2 44.0 (42-52) % Plt Count 339 362 (130-400) K/uL Neut # (Auto) 4.47 5.54 (1.4-6.5) K/uL Lymph # (Auto) 4.49 H 3.55 H (1.2-3.4) K/uL [place] # (Auto) 1.49 H 0.91 H (0.11-0.59) K/uL Eos # (Auto) 0.53 H 0.24 (0-0.5) K/uL Baso # (Auto) 0.09 0.04 (0-0.2) K/uL Comprehensive Metabolic Panel 08/15/21 08/16/21 Range/Units 21:58 06:09 Sodium 138 136 (136-145) mmol/L Potassium 3.9 3.5 (3.5-5.1) mmol/L Chloride 107 105 (98-107) mmol/L Carbon Dioxide 23 26 (21-32) mmol/L BUN 17 14 (7-18) mg/dl Creatinine 0.93 0.86 (0.6-1.4) mg/dl Glucose 104 H 106 H (70-99) mg/dl Calcium 8.2 L 8.3 L (8.5-10.1) mg/dl AST 19 (15-37) U/L ALT 25 (12-78) Alkaline Phosphatase 67 (45-117) U/L Total Protein 6.7 (6.4-8.2) gm/dl Albumin 3.3 L (3.4-5.0) gm/dl Intake and Output 08/15/21 08/16/21 08/16/21 22:59 06:59 14:59 Intake Total 500 / 500 Output Total 100 / 100 Balance 500 / 400 -100 / 400 Intake: IV 500 / 500 Sodium Chloride 0.9% 500 ml @ 500 / 500 999 mls/hr IV .Q31M STA Rx#: [id number] Output: Urine 100 / 100 Other: Other Intake Source NPO # Unmeasured Voids 1 Weight 88.8 kg 83.1 kg Weight Measurement Method Built in [facility] Built in [facility] PG Care Time/CCT Total # of Minutes Spent Total Time Spent with Patient: Total time spent is greater than 50% in coordination of care (as documented) at patient's floor/unit and/or counseling patient: Coding Level of Care Code 59184 Initial Inpt Care Lvl 3 Diagnoses Acute CVA (cerebrovascular accident) I63.9 Third degree heart block I44.2 GAY (dyspnea on exertion) R06.00
--- NOTE | 2021-08-16 10:39 | XRay Report ---
BONY ORBITS 3 VIEWS CLINICAL HISTORY: MRI clearance. FINDINGS: 3 views of the bony orbits are obtained. There is no radiodense/metallic foreign body seen in the region of the bony orbits. The bony orbits are intact as imaged. The visualized paranasal sinu ses and the mastoid air cells appear clear. The imaged calvarium appears intact. IMPRESSION: There is no radiodense/metallic foreign body seen in the region of the bony orbits. ACT 112: Negative or not required by law. Electronically signed by: Axel Alvarez M.D. 08/16/2021 10:37 AM
--- NOTE | 2021-08-16 12:03 | Magnetic Resonance Report ---
MRI OF THE BRAIN WITHOUT IV CONTRAST CLINICAL HISTORY: Strokelike symptoms. COMPARISON STUDY: CT of the brain dated 08/15/2021. TECHNIQUE: MRI of the brain was performed utilizing various T1 and T2-weighted sequences in the axial , sagittal, and coronal planes. IV contrast was not administered for this examination. FINDINGS: Brain parenchyma: There is a large focus of restricted diffusion identified in the superior aspect of the right cerebellar hemisphere consistent with an acute to subacute infarct. No additional foci of restricted diffusion are identified. There is age-related involutional change noting mild subcortical and periventricular microangiopathic disease. There is no hemorrhage or mass effect. No extra-axial fluid collection is seen. The cerebellar tonsils are normal in configuration. Ventricles, sulci, and cisterns: Prominent secondary to involutional change. Pituitary and sella: Unremarkable. Intracranial vasculature: Normal flow voids are maintained at the skull base. Orbits: The bony orbits are grossly intact. Orbital contents are normal in appearance noting bilatera l ocular lens implants. Sinuses and mastoids: There is mild mucosal thickening within the maxillary antra. A 1.6 cm retention cyst is noted in the left. Trace mucosal thickening is seen within the frontal, ethmoid, and sphenoi d sinuses. There is minimal fluid in the right sphenoid sinus. A small left mastoid effusion is noted . Calvarium: Unremarkable. Cervical cord: Partially visualized cervical spinal cord is normal in morphology and signal intensity . IMPRESSION: 1. 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 2. No additional foci of ischemia are identified. 3. There is no hemorrhage or mass effect. ACT 112: Negative or not required by law. Electronically signed by: Axel Alvarez M.D. 08/16/2021 12:02 PM
--- NOTE | 2021-08-16 14:21 | Communication Note ---
Date of Service: August 16, 2021 Mr. Bauer is 75 years old, is right-handed, is resident of the state of [place], was admitted to our hospital after having driven from [place] to the [facility] area where he was staying in a motel with his grandson who he was transporting to a [employer] school. They were watching television and suddenly he felt bilateral tinnitus then dizzy and became dysarthric had difficulty ambulating and may have noticed some clumsiness of his right hand but there is no headache hearing loss diplopia visual disturbance hemisensory issues and he was brought to our hos pital assessed, had a negative CT angiography study with the exception of what has been termed a possible eccentric thrombus in the right distal basilar artery and posterior cerebral artery but then subsequent MRI scan has shown a moderate sized right cerebellar infarction of acute type would nicely explain all of his symptomatology He was also found to have high degree heart block and referred to the cardiology note for details regarding this issue. It would be impossible to state his he did not have a paroxysmal atrial fibrillation issue but there was no evidence for atrial fibrillation on initial EKGs and he is scheduled to have a pacemaker inserted tomorrow I requested his primary physician to contact [facility] for an assessment primarily because of the location and describe size of the infarction by our radiologist and they felt that there was no real significant risk for edema, or brainstem compression and upon my final ability to review the images on our computer I tend to agree He is going to need another CT scan tomorrow and probably sequentially for a day or 2 He is going to need to start dual antiplatelet therapy as soon as cardiology clears him following the pacemaker insertion All this occurs in the setting of some low-grade hypertension and GERD with home medications being only losartan omeprazole and acetaminophen He does report on systems review about a year of easy fatigability when climbing stairs but he despite having a blood pressure cuff at home, never takes his blood pressure is not recorded his pulse so we do not know how long he may have had episodes of bradycardia. He does not describe any palpitations but this would not eliminate paroxysmal atrial fibrillation Remainder of his family history social history medication history allergies etc. are all outlined on prior notes and will not be reviewed at this point Basic laboratory studies including a CBC and CMP are essentially normal Imaging studies are described above and are pertinent for the possible thrombus in the distal basilar artery and the cerebellar infarct seen on the right which would not be explicable on the basis of the described thrombosis and is not associated with any vertebral artery disease or posterior inferior cerebellar artery stenosis on CT angiography. This would imply or suggest strongly an embolic phenomenon likely cardiogenic On exam blood pressure 165/100 pulse is 64 respirations are 20, he is afebrile and O2 saturation is 96% on room air Cranial nerve examination reveals some slightly dysarthric speech, some subtle right facial asymmetry, a few beats of nystagmus on extremes of gaze to the right, normal visual field exam. I did not test gait but he had significant cerebellar dysmetria on finger-nose testing with the right but not the left arm, had diminished facility of rapid repetitive motions in the right arm but had pretty good [id number] testing bilaterally good facility rapid leg movements and slightly brisk but not pathologically brisk lower extremity reflexes with downgoing toes no Tessie signs, good muscle strength and normal sensation to vibration light touch temperature and pinprick I suspect this man has had an embolic right cerebellar infarction likely cardiogenic source possibly due to paroxysmal atrial fibrillation and also has complete heart block which will require pacemaker insertion and this will enable him to have some long-term monitoring of his atrial rhythm. At this point I have no suggestions other than to use dual antiplatelet therapy for 21 days and then aspirin alone but also in that same interval of time he should be monitored for paroxysmal atrial fibrillation and obviously if found should probably be placed on a novel anticoagulant Much of his subsequent care is going to be rendered in the state [facility] and our records are going to be transferred up there Hopefully his neurologic status will be stable but he will need to be observed carefully and have sequential CT scans to be sure there is no development of cerebellar edema or hemorrhage We will see him again tomorrow Jesus Sarah MD
[2021-08-16] MEDS: PANTOprazole 40 MG TAB PO SCH (18:13)
[2021-08-16] MEDS ORDERED: CLOPIDOGREL BISULFATE 75 MG TAB PO ONE (18:52)
--- NOTE | 2021-08-16 19:03 | Hospitalist Progress Note ---
Date of Service August 16, 2021 Assessment & Plan (1) Acute CVA (cerebrovascular accident): Plan: Acute right cerebellar infarct -MRI Brain:Large acute to subacute right cerebellar infarct. No additional foci of ischemia are identified. There is no hemorrhage or mass effect. -Neck/Head CTA:30% luminal narrowing of the distal basilar artery and proximal P1 segment of the right posterior cerebral artery secondary to a questioned ecc entric thrombus. No high-grade stenosis or arterial occlusion. Otherwise unremarkable CTA of the head and neck. Monitor on telemetry -ECHO: Left ventricle is normal in size. Left ventricle systolic function is normal. EF 60 to 65%. Right ventricular systolic function is normal. No ASD. Moderate mitral regurgitation. Mild tricuspid regurgitation. LDL:85 -Continue dual antiplatelet therapy with aspirin, Plavix for 21 days and then transition to aspirin 81 mg daily for lifelong -Continue statin Appreciate neurology input We will repeat CT head tomorrow to monitor for any development of cerebellar edema or hemorrhage PT OT Speech therapy evaluation Abnormal CT CT chest showed Mild mediastinal and hilar adenopathy, likely reactive. Needs follow-up as outpatient Complete heart block Avoid any AV iris blocking agents Monitor on telemetry Pacer pads at bedside Appreciate cardiology input Likely plan for pacemaker placement tomorrow Hypertension Slight elevated Monitor Pancreatic neuroendocrine tumor S/P surgery Past tobacco abuse GERD on PPI DVT Px: Lovenox on hold Code Status Full code Admission and Anticipated Discharge Date Admission Date: August 16, 2021 Subjective Patient is seen and examined bedside Tinnitus resolved Dysarthria better Denies any focal weakness Chronic vision changes unchanged as per patient Updated patient's at bedside Denies any chest pain, shortness of breath, dizziness, headache, nausea Also discussed with neurology today Review of Systems Review of Systems: All systems reviewed & are unremarkable except as noted in Subjective Physical Exam Physical Exam: Physical Exam: Vitals signs as noted above General Appearance:Moderately built and nourished, no apparent distress Head: normocephalic, Atraumatic Eyes: normal inspection, EOMI Neck: supple, Trachea midline Respiratory/Chest: Normal breath sounds, CTA, No accessory muscle use Cardiovascular: Irregular, slow rhythm, + No murmur Abdomen/GI:Soft, Non tender, Bowel sounds present Extremities/Musculoskeletal:normal inspection, no edema Neurologic/Psych:AAOX3, + Dysarthria, Otherwise grossly no focal neurological deficits Skin: normal color, warm Results & Data Results & Data ([place]) Vital Signs (Past 12 Hours) Vital Signs Temp Pulse Resp BP Pulse Ox 08/16/21 15:56 36.8 C 58 L 17 155/92 H 97 08/16/21 10:50 36.6 C 64 20 165/100 H 96 08/16/21 07:00 36.6 C 63 19 158/88 H 97 Laboratory Results Short CBC 08/15/21 08/16/21 Range/Units 21:58 06:09 WBC 11.11 H 10.30 (4.8-10.8) K/uL Hgb 14.9 15.1 (14.0-18.0) g/dL Hct 43.2 44.0 (42-52) % Plt Count 339 362 (130-400) K/uL BMP 08/15/21 08/16/21 21:58 06:09 Sodium 138 136 Potassium 3.9 3.5 Chloride 107 105 Carbon Dioxide 23 26 BUN 17 14 Creatinine 0.93 0.86 Glucose 104 H 106 H Calcium 8.2 L 8.3 L Cardiac Enzymes 08/15/21 Range/Units 21:58 Troponin I < 0.015 (0-0.045) ng/ml Liver Function 08/15/21 Range/Units 21:58 Total Bilirubin 0.3 (0.2-1) mg/dl AST 19 (15-37) U/L ALT 25 (12-78) Alkaline Phosphatase 67 (45-117) U/L Albumin 3.3 L (3.4-5.0) gm/dl
[2021-08-16] MEDS: SODIUM CHLORIDE 0.9% 1000ML 1,000 ML IV SCH (23:39)
[2021-08-17 06:36] LABS: Basophils # (auto) 0.09 K/uL (0-0.2); Basophils % (auto) 1.1 %; Eosinophils # (auto) 0.43 K/uL (0-0.5); Eosinophils % (auto) 5.1 %; Hematocrit (blood only) 45.6 % (42-52); Hemoglobin 15.6 g/dL (14.0-18.0); Immature Granulocytes # (auto) 0.02 K/uL (0.00-0.02); Immature Granulocytes % (auto) 0.2 %; Lymphocytes # (auto) 3.05 K/uL (1.2-3.4); Lymphocytes % (auto) 36.1 %; Mean Corpuscular Hemoglobin 33.8 pg (25-34); Mean Corpuscular Hgb Conc 34.2 g/dL (32-36); Mean Corpuscular Volume 98.9 fL (80-100); Mean Platelet Volume 9.7 fL (7.4-10.4); Monocytes # (auto) 1.06 K/uL (0.11-0.59); Monocytes % (auto) 12.5 %; Platelet Count 352 K/uL (130-400); RDW Coefficient of Variation 13.7 % (11.5-14.5); RDW Standard Deviation 49.3 fL (36.4-46.3); Red Blood Count 4.61 M/uL (4.7-6.1); White Blood Count 8.45 K/uL (4.8-10.8)
[2021-08-17 07:16] LABS: BUN Creatinine Ratio 14.6 (10-20); Calcium 8.7 mg/dl (8.5-10.1); Creatinine Clr Calc Pharmacy 82.9 ml/min; Est GFR (African American) 100.3 ml/min; Est GFR (Non-African American) 86.5 ml/min; Potassium 3.7 mmol/L (3.5-5.1)
[2021-08-17] MEDS ORDERED: LIDOCAINE 1% LOCAL 20 ML VIAL ONE ×2 (07:28→07:40)
[2021-08-17] MEDS ORDERED: WATER, STERILE FOR INJ 10 ML VIAL ONE (07:29)
[2021-08-17] MEDS ORDERED: VANCOMYCIN HCL 1000MG/20ML VIAL ONE (07:29)
[2021-08-17] MEDS ORDERED: BACITRACIN OINT 0.9 GM PKT ONE (07:29)
--- NOTE | 2021-08-17 07:35 | Electrocardiogram Report ---
Test Reason : Blood Pressure : / mmHG Vent. Rate : 045 BPM Atrial Rate : 068 BPM P-R Int : 000 ms QRS Dur : 092 ms QT Int : 468 ms P-R-T Axes : 064 -13 077 degrees QTc Int : 404 ms Sinus rhythm with 2nd degree A-V block (Mobitz I) Abnormal ECG No previous ECGs available Confirmed by Ben Brown ([id number]) on 08/17/2021 7:35:18 AM Referred By: REFERRED SELF Confirmed By:Ben Brown
--- NOTE | 2021-08-17 07:37 | Electrocardiogram Report ---
Test Reason : Blood Pressure : / mmHG Vent. Rate : 072 BPM Atrial Rate : 072 BPM P-R Int : 000 ms QRS Dur : 086 ms QT Int : 450 ms P-R-T Axes : 000 -07 086 degrees QTc Int : 492 ms Sinus rhythm with 1st degree A-V block and second degree AV block Abnormal ECG When compared with ECG of 15-AUG-2021 21:48, (unconfirmed) Vent. rate has increased BY 27 BPM Confirmed by Ben Brown ([id number]) on 08/17/2021 7:36:45 AM Referred By: REFERRED SELF Confirmed By:Ben Brown
[2021-08-17] MEDS ORDERED: MIDAZOLAM HCL 5 MG/ML 1 ML VIAL ONE (07:58)
[2021-08-17] MEDS ORDERED: fentaNYL citrate 100 MCG/2 ML VIAL ONE (07:58)
--- NOTE | 2021-08-17 07:58 | History & Physical Bridge Note ---
Date of Service August 17, 2021 History & Physical Bridge Note I have examined the patient, reviewed the History & Physical and in the interval since the performance of the History & Physical I have noted the following changes of clinical significance: no changes noted.
--- NOTE | 2021-08-17 07:58 | Pre Anesthesia Assessment ---
Date of Service August 17, 2021 Pre Sedation Assessment Vital Signs Temp Pulse Pulse Resp BP Pulse Ox 08/17/21 07:42 56 L 16 170/91 H 96 08/17/21 03:35 36.6 C 52 L 19 165/87 H 95 08/17/21 00:05 36.8 C 46 L 20 157/97 H 92 08/16/21 23:11 38 L 08/16/21 19:49 36.8 C 45 L 18 154/91 H 94 08/16/21 15:56 36.8 C 58 L 17 155/92 H 97 08/16/21 10:50 36.6 C 64 20 165/100 H 96 Cardiovascular + bradycardic Respiratory normal respiratory effort, lungs clear to auscultation Pre-Sedation Airway Assessment Smoking Status: Former smoker Hx Sleep Apnea: No Short, Thick Neck: No Thyromental Distance: > or= 3.5 Finger Breadths Oral Cavity: + WNL Mallampati Class: IV ASA: ASA4 NPO Status Date of Last Intake of Fluids: 08/16/21 Date of Last Intake of Solid Food: 08/16/21 Procedure Planning Contraindications for Sedation: none Current Medications Reviewed: Yes Notes The planned sedation has been discussed with the patient. Informed Consent was obtained. I have identified the patient, determined the appropriateness of sedation and have assessed the patient immediately prior to the procedure. All medicine(s) and interventions are by my order.
[2021-08-17 07:59] LABS: Estimated Average Glucose 111 mg/dl; Hemoglobin A1C 5.5 % (4.5-5.6)
--- NOTE | 2021-08-17 09:28 | Electrophysiology Report ---
Date of Service August 17, 2021 Electrophysiology Procedure Electrophysiology Procedure Report Preoperative diagnosis: Complete heart block Postoperative diagnosis: Same Procedure: Dual-chamber pacemaker implantation Surgeon: Ben Brown MD Estimated blood loss: 20 cc Complications: None Disposition: Barback recovery Procedure details: After obtaining informed consent for the procedure, the patient was brought to the laboratory and prepped and draped in the standard husam rile manner. The left prepectoral region was anesthetized with 1% lidocaine local anesthetic and left axillary venipuncture was performed by percutaneous technique and a guidewire placed through the left subclavian vein into the superior vena cava. The area was further infiltrated with 1% lidocaine local anesthetic and a 5 cm incision was made parallel to the left clavicle and 2 cm below it and carried down to the anterior pectoralis fascia. A pacemaker pocket was formed by blunt dissection anterior to the pectoralis fascia and a vancomycin-soaked sponge was placed in the pocket. An attempt was made to implant a left bundle branch pacing system however stability was poor and thresholds were high although paced complexes looked excellent. Ultimately this was abandoned and a traditional system was used. An 8 [place] Medtronic lead introducer was placed over the guidewire into the left subclavian vein, the dilator and guidewire were removed and a bipolar active fixation steroid tipped ventricular lead was advanced through the introducer into the superior vena cava. A guidewire was placed through the introducer and the introducer was stripped from the lead and guidewire. Another 8 [place] Medtronic lead introducer was placed over the guidewire into the left subclavian vein, the dilator and guidewire were removed and a bipolar active fixation steroid tipped atrial lead was advanced through the introducer into the superior vena cava. A guidewire was placed back through the introducer and the introducer was stripped from the lead and guidewire. Using a curved stylette the ventricular lead was advanced through the right ventricular outflow tract into the pulmonary artery and then using a straight stylette was positioned in the high right ventricular septum. The screw was exte nded fixing the lead in position. Pacing and sensing thresholds were evaluated in bipolar configuration and are recorded on the implant data sheet. Diaphragmatic pacing was evaluated at maximum output as noted on the data sheet. Using a curved stylette the atrial lead was positioned in the region of the atrial appendage and the screw extended fixing the lead in position. Pacing and sensing thresholds were evaluated in bipolar configuration and are recorded on the implant data sheet. Diaphragmatic pacing was evaluated at maximum output as noted on the data sheet. Once the leads were in position they were attached to the anterior pectoralis fascia using 2 sutures of 2-0 silk around each lead collar. The vancomycin soaked sponge was removed from the pocket, hemostasis was obtained, the pa cemaker was attached to the leads and placed in the pocket with the leads coiled beneath it. The incision was closed with a running double subcutaneous closure of 3-0 Vicryl absorbable suture, followed by running subcuticular skin closure of 4-0 Vicryl absorbable suture. Bacitracin ointment was placed on the incision and a dressing applied. [facility] [place] codes Indication for Procedure (1) Third degree heart block: Pacing Procedure 1: Pacin Insert/Replace Pacer A & V
[2021-08-17] MEDS: LACTATED RINGER'S 1,000 ML IV SCH (09:31)
[2021-08-17] MEDS: ASPIRIN 81 MG ECTAB PO SCH (09:54)
[2021-08-17] MEDS: ATORVASTATIN 40 MG TAB PO SCH (09:54)
[2021-08-17] MEDS: CLOPIDOGREL BISULFATE 75 MG TAB PO SCH (09:54)
[2021-08-17] MEDS: PANTOprazole 40 MG TAB PO SCH (09:54)
--- NOTE | 2021-08-17 12:49 | Post Anesthesia Assessment ---
Date of Service August 17, 2021 Post Sedation Assessment Vital Signs Temp Pulse Pulse Resp BP BP Pulse Ox 08/17/21 12:00 69 18 144/84 H 97 08/17/21 10:49 36.7 C 62 20 154/94 H 97 08/17/21 09:52 62 20 150/84 H 93 08/17/21 09:40 62 18 110/66 93 08/17/21 09:25 60 20 156/91 H 93 08/17/21 07:42 56 L 16 170/91 H 96 08/17/21 03:35 36.6 C 52 L 19 165/87 H 95 08/17/21 00:05 36.8 C 46 L 20 157/97 H 92 08/16/21 23:11 38 L 08/16/21 19:49 36.8 C 45 L 18 154/91 H 94 08/16/21 15:56 36.8 C 58 L 17 155/92 H 97 Recovery Score Activity: Moves 4 extremities Post Anesthesia Score: 2 Discharge Sedation Level of Care: Fast Track Phase II Post Sedation Plan On clinical assessment, the patient appears to have tolerated the sedation without complications. Patient is recovering as anticipated. Patient will continue to be monitored by nursing and may be discharged when sedation discharge criteria are met per below protocol. Upon Completions of procedure up to 15 minutes continue every 5 minute vital signs and the P.A.R. score; then discharge to a Phase I or Fast Track to Phase II per the following guidelines: * Discharge Patient to appropriate Phase II area if PAR is 8 or greater or return to pre- procedure baseline. The post - procedure orders will be as directed. * If PAR score is less than 8 or not return to pre-procedure baseline then patient will follow Phase I monitoring till PAR is reached for Phase II. The Phase I may be done in procedure room or may call to secure a Phase I area. * If naloxone or flumazenil are used for reversal, hold in Phase I for continued monitoring from when last reversal dose was given for a minimum of 60 minutes or longer pending the nurse and/or physician discretion of patient condition before discharge to Phase II. Please call the Sedation Physician to re-evaluate and complete post-note for discharge to Phase II area. Do NOT discharge from procedure sedation or Phase 1 until post- sedation evaluation note is complete by procedure /sedation MD Sedation Discharge Instructions to be given to the patient at discharge to home.
--- NOTE | 2021-08-17 14:18 | Electrocardiogram Report ---
Test Reason : Blood Pressure : / mmHG Vent. Rate : 060 BPM Atrial Rate : 060 BPM P-R Int : 186 ms QRS Dur : 164 ms QT Int : 494 ms P-R-T Axes : 083 -42 093 degrees QTc Int : 494 ms AV dual-paced rhythm Abnormal ECG When compared with ECG of 16-AUG-2021 00:12, Electronic ventricular pacemaker has replaced Sinus rhythm Confirmed by Dalton Encinas ([id number]) on 08/17/2021 2:17:22 PM Referred By: REFERRED SELF Confirmed By:Dalton Encinas
--- NOTE | 2021-08-17 14:32 | Electrophysiology Report ---
Date of Service August 17, 2021 Electrophysiology Procedure Electrophysiology Procedure Report This is a billing procedure note for conscious sedation procedure details for the device implant are in the other note from this day. [facility] Electrophysiology codes Indication for Procedure (1) Third degree heart block: PG Moderate Sedation Codes Moderate Sedation Codes Procedure 1: Sedation/Anesthesia: 91062 Mod Sedation by the same physician;Init15 Min Child Age 5 & Up Procedure 2: Sedation/Anesthesia: 24683 Mod Sedation by the same physician; Ea [id number] Minutes
--- NOTE | 2021-08-17 16:24 | Communication Note ---
Date of Service: August 17, 2021 I saw Adam today with his . He has his pacemaker on board and neurologically still has mildly dysarthric speech and some right-sided cerebellar motor signs with clumsiness of the right hand and leg to a lesser degree. He does have a headache there is no nystagmus today he does talk about any sensory disturbances and there is no clinical evidence for brainstem involvement CT scan is pending Discharge plans are unclear other than the fact that family plans to continue on to [place] where they winter and have physicians on record particularly cardiology and primary care are rolled in a large group practice If the CT scan is stable tomorrow, shows no edema of significance, and no hemorrhagic changes and arrangements can be made to have him follow-up by his inorganic chemist in [place] then I think he possibly could be discharged the following day. I think minimum of 72 hours observation after cerebellar CVA is reasonable and appropriate travel plans etc. and follow-up can be arranged He and his are anxious about the dual antiplatelet therapy due to prior issues with bleeding to the point that he actually stopped a daily baby aspirin which had been recommended by his inorganic chemist I can certainly change my recommendations to include only a single antiplatelet agent and would pick either baby aspirin or a single Plavix per day Frankly I am suspicious that this was an embolic event from a cardiogenic source specifically paroxysmal atrial fibrillation as yet we have no proof of this and I think he is going to require frequent interrogation of his pacer or perhaps even outpatient Zio patch to see if atrial fibrillation can be captured and his anticoagulation switched to a novel anticoagulant or possibly Coumadin All this again is going to be a long-term management issue in the state of [place] and subsequently in the [facility] where he resides half of the year Neurology will follow up tomorrow
--- NOTE | 2021-08-17 16:40 | CT Scan Report ---
CT SCAN OF THE BRAIN WITHOUT IV CONTRAST CLINICAL HISTORY: Follow-up stroke. COMPARISON STUDY: CT of the brain dated 08/15/2021. MRI of the brain dated 08/16/2021. TECHNIQUE: Unenhanced axial CT scan of the brain is performed from the vertex to the skull base. A do se lowering technique was utilized adhering to the principles of ALARA. CT DOSE: 765.09 mGycm FINDINGS: Brain parenchyma: There are age-related involutional changes noting mild subcortical and periventric ular microangiopathic change. There is loss of hardin-white matter differentiation or cerebellar hemisp here consistent with an evolving infarct. No hemorrhage or mass effect is identified. No extra-axial fluid collection is seen. Ventricles, sulci, cisterns: Prominent secondary to involutional change. Intracranial vasculature: There is atherosclerotic calcification of the cavernous carotid and vertebr al arteries. Calvarium: Unremarkable. Sinuses and mastoids: There is trace mucosal thickening in the maxillary antra. A 1.[address] is noted on the left. Trace mucosal thickening is also seen within the frontal, ethmoid, and sphen oid sinuses. There is a small left mastoid effusion. The right mastoid air cells are well pneumatized . Orbits: The bony orbits are grossly intact. There are bilateral ocular lens implants. IMPRESSION: 1. Evolving infarct in the right cerebellar hemisphere. 2. No additional foci of ischemia are suggested by CT criteria. 3. There is no hemorrhage or mass effect. ACT 112: Negative or not required by law. Electronically signed by: Axel Alvarez M.D. 08/17/2021 4:39 PM
[2021-08-17] MEDS: SODIUM CHLORIDE 0.9% 1000ML 1,000 ML IV SCH (16:41)
--- NOTE | 2021-08-17 16:43 | Hospitalist Progress Note ---
Date of Service August 17, 2021 Assessment & Plan (1) Acute CVA (cerebrovascular accident): Plan: Acute right cerebellar infarct -MRI Brain:Large acute to subacute right cerebellar infarct. No additional foci of ischemia are identified. There is no hemorrhage or mass effect. -Neck/Head CTA:30% luminal narrowing of the distal basilar artery and proximal P1 segment of the right posterior cerebral artery secondary to a questioned ecc entric thrombus. No high-grade stenosis or arterial occlusion. Otherwise unremarkable CTA of the head and neck. Monitor on telemetry -ECHO: Left ventricle is normal in size. Left ventricle systolic function is normal. EF 60 to 65%. Right ventricular systolic function is normal. No ASD. Moderate mitral regurgitation. Mild tricuspid regurgitation. LDL:85 -Continue dual antiplatelet therapy with aspirin, Plavix for 21 days and then transition to aspirin 81 mg daily for lifelong -Continue statin Appreciate neurology input PT OT Speech therapy evaluation Repeat CT head pending Abnormal CT CT chest showed Mild mediastinal and hilar adenopathy, likely reactive. Needs follow-up as outpatient Complete heart block Avoid any AV iris blocking agents Monitor on telemetry Appreciate cardiology input S/P pacemaker placement on 08/17/21 Needs follow-up with cardiology upon discharge Hypertension Slight elevated Monitor Pancreatic neuroendocrine tumor S/P surgery Past tobacco abuse GERD on PPI DVT Px: Lovenox on hold Code Status Full code Admission and Anticipated Discharge Date Admission Date: August 16, 2021 Subjective Patient is seen and examined bedside Patient had pacemaker placement this morning Dysarthria about the same as yesterday No new focal weakness CT head pending Updated patient's over the phone Chronic vision changes as per patient Denies any chest pain, shortness of breath, dizziness, headache, nausea Review of Systems Review of Systems: All systems reviewed & are unremarkable except as noted in Subjective Physical Exam Physical Exam: Physical Exam: Vitals signs as noted above General Appearance:Moderately built and nourished, no apparent distress Head: normocephalic, Atraumatic Eyes: normal inspection, EOMI Neck: supple, Trachea midline Respiratory/Chest: Normal breath sounds, CTA, No accessory muscle use Cardiovascular: Irregular, + No murmur, +Pacemaker Abdomen/GI:Soft, Non tender, Bowel sounds present Extremities/Musculoskeletal:normal inspection, no edema Neurologic/Psych:AAOX3, + Dysarthria, Otherwise grossly no focal neurological deficits Skin: normal color, warm Results & Data Results & Data ([facility]) Vital Signs (Past 12 Hours) Vital Signs Temp Pulse Pulse Resp BP BP Pulse Ox 08/17/21 15:38 67 08/17/21 15:22 36.7 C 62 19 157/91 H 97 08/17/21 12:00 69 18 144/84 H 97 08/17/21 10:49 36.7 C 62 20 154/94 H 97 08/17/21 09:52 62 20 150/84 H 93 08/17/21 09:40 62 18 110/66 93 08/17/21 09:25 60 20 156/91 H 93 08/17/21 07:42 56 L 16 170/91 H 96 Laboratory Results Short CBC 08/17/21 Range/Units 06:20 WBC 8.45 (4.8-10.8) K/uL Hgb 15.6 (14.0-18.0) g/dL Hct 45.6 (42-52) % Plt Count 352 (130-400) K/uL BMP 08/17/21 06:20 Sodium 135 L Potassium 3.7 Chloride 104 Carbon Dioxide 24 BUN 12 Creatinine 0.82 Glucose 93 Calcium 8.7
[2021-08-18] MEDS: LACTATED RINGER'S 1,000 ML IV SCH (05:09)
[2021-08-18 07:11] LABS: Basophils # (auto) 0.06 K/uL (0-0.2); Basophils % (auto) 0.6 %; Eosinophils # (auto) 0.54 K/uL (0-0.5); Hemoglobin 15.7 g/dL (14.0-18.0); Immature Granulocytes # (auto) 0.03 K/uL (0.00-0.02); Immature Granulocytes % (auto) 0.3 %; Lymphocytes # (auto) 2.22 K/uL (1.2-3.4); Lymphocytes % (auto) 20.7 %; Mean Corpuscular Hemoglobin 33.5 pg (25-34); Mean Corpuscular Hgb Conc 34.1 g/dL (32-36); Mean Corpuscular Volume 98.1 fL (80-100); Mean Platelet Volume 9.8 fL (7.4-10.4); Monocytes # (auto) 1.46 K/uL (0.11-0.59); Monocytes % (auto) 13.6 %; Neutrophils # (auto) 6.44 K/uL (1.4-6.5); Neutrophils % (auto) 59.8 %; Platelet Count 336 K/uL (130-400); RDW Coefficient of Variation 13.6 % (11.5-14.5); RDW Standard Deviation 48.4 fL (36.4-46.3); Red Blood Count 4.69 M/uL (4.7-6.1); White Blood Count 10.75 K/uL (4.8-10.8)
--- NOTE | 2021-08-18 07:25 | XRay Report ---
XR chest 2V PA/lateral CLINICAL HISTORY: EXACT TIME ORDERED Evaluate for pneumothorax and l TECHNIQUE: AP and lateral frontal radiograph of the chest was obtained. Comparison: Comparison is made to chest one view 08/15/2021 FINDINGS: Stable dual lead pacemaker. The cardiomediastinal silhouette is normal. The lungs are clear. No evide nce of pleural effusion or pneumothorax. IMPRESSION: No acute abnormality and in particular no evidence of no evidence of pneumothorax. ACT 112: Negative or not required by law. Electronically signed by: Gaston Motley M.D. 08/18/2021 7:24 AM
[2021-08-18 07:29] LABS: BUN Creatinine Ratio 16.6 (10-20); Calcium 8.7 mg/dl (8.5-10.1); Creatinine Clr Calc Pharmacy 81.9 ml/min; Est GFR (African American) 99.8 ml/min; Est GFR (Non-African American) 86.1 ml/min; Potassium 3.9 mmol/L (3.5-5.1)
[2021-08-18] MEDS: ATORVASTATIN 40 MG TAB PO SCH (07:55)
[2021-08-18] MEDS: PANTOprazole 40 MG TAB PO SCH (07:55)
[2021-08-18] MEDS: ASPIRIN 81 MG ECTAB PO SCH (07:55)
[2021-08-18] MEDS: CLOPIDOGREL BISULFATE 75 MG TAB PO SCH (07:55)
[2021-08-18] MEDS ORDERED: THIAMINE HCL 100 MG TAB PO SCH (09:00)
--- NOTE | 2021-08-18 11:40 | Hospitalist Progress Note ---
Date of Service August 18, 2021 Assessment & Plan (1) Acute CVA (cerebrovascular accident): Plan: Acute right cerebellar infarct -MRI Brain:Large acute to subacute right cerebellar infarct. No additional foci of ischemia are identified. There is no hemorrhage or mass effect. -Neck/Head CTA:30% luminal narrowing of the distal basilar artery and proximal P1 segment of the right posterior cerebral artery secondary to a questioned ecc entric thrombus. No high-grade stenosis or arterial occlusion. Otherwise unremarkable CTA of the head and neck. Monitor on telemetry -ECHO: Left ventricle is normal in size. Left ventricle systolic function is normal. EF 60 to 65%. Right ventricular systolic function is normal. No ASD. Moderate mitral regurgitation. Mild tricuspid regurgitation. LDL:85 --Repeat CT head: Evolving infarct in the right cerebellar hemisphere. No additional foci of ischemia are suggested by CT criteria. There is no hemorrhage or mass effect. --Initial plan was to continue dual antiplatelet therapy with aspirin, Plavix for 21 days and then transition to aspirin 81 mg daily for lifelong --Given Bleeding issues in the patient (Confirmed by patient and family ), after discussing with neurology: Plan is to continue Plavix 75 mg daily for lifelong. --Continue statin Appreciate neurology input PT OT ana paula completed Speech therapy evaluation Abnormal CT CT chest showed Mild mediastinal and hilar adenopathy, likely reactive. Needs follow-up as outpatient Complete heart block Avoid any AV iris blocking agents Monitor on telemetry Appreciate cardiology input S/P pacemaker placement on 08/17/21 Needs follow-up with cardiology upon discharge Hypertension Restart Losartan Monitor Pancreatic neuroendocrine tumor S/P surgery Past tobacco abuse GERD on PPI DVT Px: Lovenox SQ Code Status Full code Admission and Anticipated Discharge Date Admission Date: August 16, 2021 Subjective Patient is seen and examined bedside Doing better today Speech slowly improving Discussed with Cardiology and Neurology today Vision better with using correction glasses as per patient Denies any chest pain, shortness of breath, dizziness, headache, nausea Updated patient's over the phone Review of Systems Review of Systems: All systems reviewed & are unremarkable except as noted in Subjective Physical Exam Physical Exam: Physical Exam: Vitals signs as noted above General Appearance:Moderately built and nourished, no apparent distress Head: normocephalic, Atraumatic Eyes: normal inspection, EOMI Neck: supple, Trachea midline Respiratory/Chest: Normal breath sounds, CTA, No accessory muscle use Cardiovascular: Irregular, + No murmur, +Pacemaker Abdomen/GI:Soft, Non tender, Bowel sounds present Extremities/Musculoskeletal:normal inspection, no edema Neurologic/Psych:AAOX3, + Dysarthria, Otherwise grossly no focal neurological deficits Skin: normal color, warm Results & Data Results & Data ([facility]) Vital Signs (Past 12 Hours) Vital Signs Temp Pulse Pulse Resp BP BP Pulse Ox 08/18/21 10:49 36.7 C 70 18 145/85 H 94 08/18/21 08:00 64 08/18/21 07:23 35.1 C L 60 17 154/86 H 96 08/18/21 03:04 36.8 C 61 18 158/87 H 94 08/17/21 23:55 62 Laboratory Results Short CBC 08/18/21 Range/Units 06:41 WBC 10.75 (4.8-10.8) K/uL Hgb 15.7 (14.0-18.0) g/dL Hct 46.0 (42-52) % Plt Count 336 (130-400) K/uL BMP 08/18/21 06:41 Sodium 132 L Potassium 3.9 Chloride 102 Carbon Dioxide 24 BUN 14 Creatinine 0.83 Glucose 101 H Calcium 8.7
--- NOTE | 2021-08-18 11:52 | Cardiology Progress Note ---
Date of Service August 18, 2021 Assessment & Plan (1) Acute CVA (cerebrovascular accident): (2) Third degree heart block: (3) Status post placement of cardiac pacemaker: Plan: 1. CVA: There is no proven source for his CVA, it may be cardioembolic and therefore he should have monitoring for atrial fibrillation. 2. AV block: He has first, second and third-degree AV block on telemetry. He has been pacing virtually all of the time since pacemaker implantation y esterday, this is appropriate for his degree of AV block. 3. Postop day #1: He is doing well following pacemaker implantation, the site looks good, the x-ray looks good and he feels well. He is stable from my standpoint for discharge. He does have an cap maker in [place] but not a family assistant, he is going to contact his cap maker for a referral. I told him he should be seen within about a week in [place]. Admission and Anticipated Discharge Date Admission Date: August 16, 2021 Subjective He is feeling quite well following pacemaker implantation yesterday. He has no significant incisional discomfort, he has had no palpitations or chest discomfort since device implantation. He is sitting at his bedside today. Physical Exam Physical Exam: The pacemaker insertion site is clean and dry, there is no bleeding, there is no swelling or erythema. Minimal ecchymosis. Lungs are clear Cardiac rhythm is regular without rub Results & Data ([facility]) Vital Signs (Past 12 Hours) Vital Signs Temp Pulse Pulse Resp BP BP Pulse Ox 08/18/21 08:00 64 08/18/21 07:23 35.1 C L 60 17 154/86 H 96 08/18/21 03:04 36.8 C 61 18 158/87 H 94 08/17/21 23:55 62 08/17/21 23:02 36.8 C 63 16 148/83 H 96 Laboratory Results CBC 08/18/21 Range/Units 06:41 WBC 10.75 (4.8-10.8) K/uL RBC 4.69 L (4.7-6.1) M/uL Hgb 15.7 (14.0-18.0) g/dL Hct 46.0 (42-52) % Plt Count 336 (130-400) K/uL Neut # (Auto) 6.44 (1.4-6.5) K/uL Lymph # (Auto) 2.22 (1.2-3.4) K/uL [place] # (Auto) 1.46 H (0.11-0.59) K/uL Eos # (Auto) 0.54 H (0-0.5) K/uL Baso # (Auto) 0.06 (0-0.2) K/uL Comprehensive Metabolic Panel 08/18/21 Range/Units 06:41 Sodium 132 L (136-145) mmol/L Potassium 3.9 (3.5-5.1) mmol/L Chloride 102 (98-107) mmol/L Carbon Dioxide 24 (21-32) mmol/L BUN 14 (7-18) mg/dl Creatinine 0.83 (0.6-1.4) mg/dl Glucose 101 H (70-99) mg/dl Calcium 8.7 (8.5-10.1) mg/dl Intake and Output 08/17/21 08/18/21 08/18/21 22:59 06:59 14:59 Intake Total 971.667 / 1346.667 100 / 1346.667 Balance 971.667 / 1346.667 100 / 1346.667 Intake: IV 851.667 / 851.667 Sodium Chloride 0.9% 1000ML 1, 851.667 / 851.667 000 ml @ 50 mls/hr IV .Q20H [facility] Rx#:[id number] Oral 120 / 495 100 / 495 Other: # Unmeasured Voids 1 Weight 82.3 kg Weight Measurement Method [facility] Diagnostic Findings Postop ECG: AV sequential pacing appropriately Telemetry: AV sequential pacing as well as atrial sensing with ventricular pacing. Appropriate pacemaker function. Chest x-ray: Good lead position, no pneumothorax Pacemaker evaluation: Excellent pacing and sensing characteristics PG Care Time/CCT Total # of Minutes Spent Total Time Spent with Patient: Total time spent is greater than 50% in coordination of care (as documented) at patient's floor/unit and/or counseling patient: Coding Level of Care Code 28358 Post Operative Follow-Up Diagnoses Third degree heart block I44.2 Acute CVA (cerebrovascular accident) I63.9 Status post placement of cardiac pacemaker Z95.0 CPT Codes Dual Lead Pacemaker System - 03179 ([id number])
--- NOTE | 2021-08-18 11:59 | Communication Note ---
Date of Service: August 18 2021 I have reviewed Mr. Bauer CT scan which shows no evidence for significant edema surrounding the cerebellar infarction and I spoke with his implanting physician Dr. Garcia today regarding discharge which both he and his want to do today and get moving on her way to [place] where they have medical care available both as a primary care and cardiology. He is currently been cleared for discharge post pacemaker insertion He has a history of easy bleeding on aspirin and is very reluctant to go back on the medication yesterday and was very concerned about the use of 2 antiplatelet drugs Since he was not on any antiplatelet drug when he had his event and my opinion the event is likely embolic (we still cannot prove this however) I would okay hi m to be discharged on a single antiplatelet drug and in his case Plavix. This can be revisited by his cardiology group, his primary care and by neurology who will need to follow-up on his case, perhaps reimage him, and consult cardiology regarding long-term monitoring for paroxysmal atrial fibrillation which I think is the probable cause for this particular event From neurologic point view then he is cleared for discharge on a single antiplatelet and needs to be followed up promptly when he arrives in [place] by his primary care radiology and eventually neurology I would suggest the images be scanned onto disc along with her medical so that some physicians have access to his records and undue delay Jesus Rodriguez
--- NOTE | 2021-08-18 12:27 | Discharge Summary ---
Date of Service August 18, 2021 Admission HPI Per Admitting Provider History obtained from patient, family, and records. Medical history significant for hypertension, pancreatic neuroendocrine tumor status post surgery, GERD, past tobacco abuse. Patient is a resident of [place], [place] who (along with his and grandson) left his home yesterday by car to travel to [place] where patient and his maintain a second residence. Patient and were going to accompany/drop off grandson at a [employer] school in [place] before driving to their final destination in [place]. Last night after dinner, patient was with his family at a local hotel room in [place], [place] when he experienced sudden onset bilateral tinnitus without hearing loss or headache later followed by dizziness described as spinning somewhat worse with motion. Patient later noted to be dysarthric by family. No visual problems/facial/arm or leg weakness. No prior episodes. Patient denies chest pain, S OB. Patient found to have complete heart block on EKG done by EMS. Patient brought to the ER for evaluation. Dysarthria symptoms coming and going as per ER provider. TPA not recommended by [facility] stroke specialist interventional radiologist. Aspirin and statin administered at the ER as per specialist recommendations. Medical History as above Surgical History : Pancreatic tail tumor removal, splenectomy Family History : No heart disease, no DM, no stroke as per patient Personal/Social history : Past tobacco abuse, occasional EtOH intake, retired maintenance representative Admission Exam Per Admitting Provider Physical Exam Physical Exam: GENERAL: Comfortable, slightly anxious, dysarthric, no respiratory distress SKIN: Normal color, warm HEENT: Partial alopecia,pink palpebral conjunctivae, no ptosis, intact TM, moist buccal mucosa NECK : Supple, no tenderness CHEST : CTA, no tenderness HEART : Bradycardic, no obvious murmurs ABDOMEN: Some distention, nontender EXTREMITIES : No LE swelling/tenderness, no other conspicuous deformities noted NEUROLOGIC : Coherent, no facial asymmetry, dysarthric, no pronator drift, gait and stance not assessed Principal Diagnosis Acute right cerebellar infarct Third degree heart block Mild mediastinal and hilar adenopathy Discharge Data Allergies Allergy/AdvReac Type Severity Reaction Status Date / Time No Known Allergies Allergy Unverified 08/15/21 22:10 Consultations 08/15/21 23:29 ED Decision to Admit Stat 08/16/21 02:46 Consult Cardiology Routine Consult Neurology Routine 08/18/21 12:00 Burn CD for patient Routine Procedures Performed Operation Date: 08/17/21 08:00 Actual Procedures p Pacer with A/V Leads (Dual) - Ben Brown MD Ordered Studies 08/15/21 22:03 CT angio head w con Stat CT angio neck with con Stat CT head/brain wo con Stat 08/15/21 22:37 CT angio chest dissec wo/w con Stat 08/16/21 00:42 MR brain wo con Urgent 08/17/21 07:25 CL Cath Imgs for PACS use only Stat 08/17/21 14:30 CT head/brain wo con Urgent 08/19/21 08:00 CT head/brain wo con DAILY Hospital Course (1) Acute CVA (cerebrovascular accident): Acute right cerebellar infarct -MRI Brain:Large acute to subacute right cerebellar infarct. No additional foci of ischemia are identified. There is no hemorrhage or mass effect. -Neck/Head CTA:30% luminal narrowing of the distal basilar artery and proximal P1 segment of the right posterior cerebral artery secondary to a questioned eccentric thrombus. No high-grade stenosis or arterial occlusion. Otherwise unremarkable CTA of the head and neck. Monitor on telemetry -ECHO: Left ventricle is normal in size. Left ventricle systolic function is normal. EF 60 to 65%. Right ventricular systolic function is normal. No ASD. Moderate mitral regurgitation. Mild tricuspid regurgitation. LDL:85 --Repeat CT head: Evolving infarct in the right cerebellar hemisphere. No additional foci of ischemia are suggested by CT criteria. There is no hemorrhage or mass effect. --Initial plan was to continue dual antiplatelet therapy with aspirin, Plavix for 21 days and then transition to aspirin 81 mg daily for lifelong --Given Bleeding issues in the patient (Confirmed by patient and family ), after discussing with neurology: Plan is to continue Plavix 75 mg daily for lifelong. --Continue statin Appreciate neurology input PT OT eval completed Speech therapy evaluation Abnormal CT CT chest showed Mild mediastinal and hilar adenopathy, likely reactive. Needs follow-up as outpatient Complete heart block Avoid any AV iris blocking agents Monitor on telemetry Appreciate cardiology input S/P pacemaker placement on 08/17/21 Needs follow-up with cardiology upon discharge Hypertension Restart Losartan Monitor Pancreatic neuroendocrine tumor S/P surgery Past tobacco abuse GERD on PPI DVT Px: Lovenox SQ Code Status Full code Total Time Total Time Spent Total Time Spent (In Minutes): 55 minutes Discharge Plan Discharge Items Patient Disposition: Home - Home Health Services Reason For Visit: 3AVB, CVA Discharge Diagnosis: Acute right cerebellar infarct Third degree heart block Mild mediastinal and hilar adenopathy Activity: Per Instructions section Driving/Machine Use: No driving permitted until cleared by your neurologist. Non-emergency contact: Primary Care Provider, Research And Evaluation Manager and Neurologist Call non-emergency contact if: you have any medication questions, your symptoms worsen, your pain is concerning for you and you have a fever Diet: Heart Healthy Addtl Attending Provider Instructions: Follow-up with your Primary care physician in 1 week as advised Follow-up with your Research And Evaluation Manager in 1 week for pacemaker check Follow-up with your Neurologist in 2-4 weeks ---Continue speech therapy as outpatient ----Omeprazole is changed to pantoprazole 40 mg daily given interaction with clopidogrel (Plavix) Seek immediate medical attention if your symptoms reoccur or worsen Please take all medications as instructed on discharge list below. Please call if you have any questions or problems. You can reach a [facility] hospitalist on duty at [facility] 24 hours a day by calling [phone] Risk Factors for Stroke: You can reduce your chances of stroke by working with your medical provider to adopt a healthy lifestyle. Some specific ways to lower your chance of stroke are: * If you are a smoker, now is the time to stop smoking cigarettes * If you are diabetic, improve the control of your blood sugars * Avoid excessive amounts of alcohol * Control high blood pressure * Lose weight if you are overweight * Be sure to lead an active lifestyle * Eat a healthy diet low in salt, cholesterol and fat You should know about other risk factors for stroke that you are unable to control. These include: * Age 55 years or older * Male gender * Certain racial groups: , or / * Family History of Stroke, Mini stroke or Heart Attack * Sickle Cell Disease Follow Up: It is important for you to keep your follow up appointments with your medical provider. Who to Call and When: Medical Emergencies: Call 911 immediately if you experience any of the following warning signs and symptoms of Stroke: * Sudden numbness or weakness of the face, arm or leg, especially on one side of the body * Sudden confusion, trouble speaking or understanding * Sudden trouble seeing in one or both eyes * Sudden trouble walking, dizziness, loss of balance or coordination * Sudden severe headache with no cause Do not delay calling 911 if you experience any warning signs or symptoms of a stroke. Delay in seeking medical attention may affect what treatments can be given to you. . Addtl Transfill Technician Provider Instructions: ACTIVITY RECOMMENDATIONS: * Do not raise affected arm over head for 2 weeks. SPECIAL CARE INSTRUCTIONS: * If bleeding occurs, apply direct pressure to area for 5 minutes. * Call your doctor if you have severe pain, fever, drainage or bleeding at site. * Keep dressing on and dry for 48 hours then remove. * Keep any scheduled doctor's appointment. * Implant Card - hand held device with website information given. SKIN IRRITATION: * You may experience some redness and/or swelling in the area where radiation was administered. If any skin irritation occurs, please contact your family physician. FOLLOW UP VISIT: Keep any scheduled doctor appointments. Pending Studies at Discharge: No Stand-Alone Forms: My [employer], Smoking Cessation Medications and DC Order Prescriptions: New atorvastatin 40 mg Tablet 40 mg PO QAM Qty: 30 RF: 0 clopidogrel 75 mg Tablet 75 mg PO QAM Qty: 30 RF: 0 pantoprazole 40 mg Tablet,Delayed Release (Dr/Ec) 40 mg PO DAILY Qty: 30 RF: 0 Continued losartan 100 mg tablet 100 mg PO DAILY RF: 0 acetaminophen [Tylenol Arthritis] 650 mg Tablet Extended Release 650 mg PO Q12H RF: 0 Discontinued omeprazole 20 mg capsule,delayed release(DR/EC) 20 mg PO QPM PRN (Reason: Acid Reflux) RF: 0 omeprazole 20 mg capsule,delayed release(DR/EC) 20 mg PO DAILY RF: 0 Discharge Orders: Discharge Order (Routine); Ordered 08/18/21 Ordered By: Brandon Ramírez Admission Data Admit Date/Time: 08/16/21 00:42 Attending Provider: Brandon Ramírez Admit Provider: Ventura Miller Primary Care Provider: PCP,NO Other Providers: Ventura Miller ; Sky Taylor ; Fela Landaverde ; Jesus Sarah ; Fela Oleary ; Hal Church
== END 2021-08-18 14:03 | disposition home health service (06) | DRG 242 ==
LOC: ED 21:45 → SUATTDRO 08-16 00:42 → 2S 08-16 00:42